=== PATIENT | male | born 1990 | race Caucasian/White ===

== ENCOUNTER 2020-08-12 19:34 | Emergency (ER) | payer MEDICAID ==
[~2020-08-12] VITALS: Ht 177.8 cm; Wt 63.6 kg
[~2020-08-12 19:34] MED LIST: ALPR1TAB2 PO; BENA10TA74 PO; BUPR1FIL3 SL
[2020-08-12 19:38] VITALS: BP 132/72
[2020-08-13] MEDS ORDERED: NO HOME MEDS (19:42)
== END 2020-08-12 22:10 | disposition left against medical advice (07) ==
LOC: ER 19:34
DX: L02.414 Cutaneous abscess of left upper limb (principal); Z53.21 Procedure and treatment not carried out due to patient leaving prior to being seen by health care provider

== ENCOUNTER 2020-08-13 11:13 | Emergency (ER) | payer MEDICAID ==
[~2020-08-13] VITALS: Ht 180.3 cm; Wt 77.3 kg
[2020-08-13 11:55] LABS: BASOPHILS # (AUTO) 0.1 X10'3 (0-0.2); BASOPHILS % (AUTO) 0.7 % (0-1); EOSINOPHILS % (AUTO) 0.4 % (0-6); HEMOGLOBIN 12.8 g/dl (14.0-17.9); LYMPHOCYTES % (AUTO) 19.3 % (21-51); MEAN CORPUSCULAR HEMOGLOBIN 29.7 PG (27.0-31.0); MEAN CORPUSCULAR HGB CONC 33.7 g/dL (33.0-36.5); MEAN CORPUSCULAR VOLUME 88.3 FL (78-98); MEAN PLATELET VOLUME 6.7 FL (7.4-10.4); MONOCYTES # (AUTO) 1.1 X10'3 (0-0.9); MONOCYTES % (AUTO) 10.6 % (2-12); NEUTROPHILS # (AUTO) 7.2 X10'3 (1.8-7.7); PLATELET COUNT 518 X10'3 (140-440); RED CELL DISTRIBUTION WIDTH 15.3 % (11.5-14.5); WHITE BLOOD COUNT 10.5 X10'3 (4.5-11.0)
[2020-08-13 12:14] LABS: ALANINE AMINOTRANSFERASE 47 U/L (12-78); ALBUMIN 2.9 G/DL (3.4-5.0); ALBUMIN/GLOBULIN RATIO 0.6 (1.1-1.5); ALKALINE PHOSPHATASE 104 IU/L (46-116); ANION GAP 7 (8-16); ASPARTATE AMINO TRANSFERASE 27 U/L (10-37); BILIRUBIN,TOTAL 0.2 MG/DL (0.1-1.0); BLOOD UREA NITROGEN 12 MG/DL (7-18); BUN/CREATININE RATIO 20.3 (5.4-32.0); CALCIUM 8.7 MG/DL (8.5-10.1); CHLORIDE 106 MMOL/L (99-107); CREATININE 0.59 MG/DL (0.60-1.10); GLUCOSE 107 MG/DL (70-104); POTASSIUM 3.4 MMOL/L (3.5-5.1); SODIUM 142 MMOL/L (135-145); TOTAL CARBON DIOXIDE 28.8 MMOL/L (24-32); eGFR > 90 ML/MIN
[2020-08-13 12:16] LABS: ETHANOL < 0.010 GM/DL (0.0-0.010)
[2020-08-13] MEDS ORDERED: risperiDONE 2mg tablet PO ONE (12:45)
[2020-08-13] MEDS ORDERED: LORazepam 1 MG tablet PO ONE (12:45)
--- NOTE | 2020-08-13 13:12 | NUR ---
PT LAYING ON HIS RIGHT SIDE RESTING.
[2020-08-13] MEDS ORDERED: diphenhydrAMINE 50 mg/ml inj IM ONE (14:00)
[2020-08-13] MEDS ORDERED: haloperidol lactate 5mg/ml inj IM ONE (14:00)
[2020-08-13] MEDS ORDERED: LORazepam 2 mg/ml vial IM ONE (14:00)
[2020-08-13 14:10] LABS: URINE AMPHETAMINE SCREEN POSITIVE (Neg); URINE BARBITUATE SCREEN NEGATIVE (Neg); URINE BENZODIAZEPINES SCREEN NEGATIVE (Neg); URINE CANNABINOID SCREEN NEGATIVE (Neg); URINE COCAINE SCREEN NEGATIVE (Neg); URINE METHADONE SCREEN NEGATIVE (Neg); URINE OPIATE SCREEN POSITIVE (Neg); URINE PHENCYCLIDINE SCREEN NEGATIVE (Neg)
[2020-08-13] MEDS ORDERED: sulfamethoxazole/trimethoprim DS (800/160mg) tablet PO ONE (14:40)
--- NOTE | 2020-08-13 15:41 | NUR ---
PT RESTING LAYIN ON HIS RIGHT SIDE. NO DISTRESS NOTED AT THIS TIME.
[2020-08-13 15:50] LABS: CLARITY,URINE CLOUDY (Clear); COLOR,URINE YELLOW (Yellow); GLUCOSE, URINE NEGATIVE (Neg); KETONES,URINE NEGATIVE (Neg); LEUKOCYTE ESTERASE ,URINE NEGATIVE (Neg); NITRITES, URINE NEGATIVE (Neg); OCCULT BLOOD,URINE TRACE-LYSED (Neg); PH,URINE 7.5 (4.8-8.0); PROTEIN,URINE NEGATIVE (Neg); UROBILINOGEN,URINE 0.2 E.U/dL (0.2-1.0)
[2020-08-13 15:56] LABS: UA COLLECTION TYPE URINAL
[2020-08-13 15:58] LABS: BACTERIA,URINE 1+ /HPF (Neg); SQUAMOUS EPITHELIAL CELL,UR FEW /LPF (FEW); WBC,URINE 0-4 /HPF (0-4)
[2020-08-13 15:59] LABS: AMORPHOUS PHOSPHATES 3+; CAL OXALATE CRYSTALS 1+ /HPF (NEGATIVE)
--- NOTE | 2020-08-13 18:04 | NUR ---
PT RESTING LAYING ON HIS RIGHT SIDE, RESPIRATIONS EVEN AND UNLABORED. NO DISTRESS NOTED AT THIS TIME.
--- NOTE | 2020-08-13 18:30 | NUR ---
The patient was moved to bed 23 in the ER. He was cooperative with the move. He appears very disheveled, thin, and unbathed. He was very hungry and ate 100% of two dinner trays.
[2020-08-13] MEDS ORDERED: NO HOME MEDS (19:42)
--- NOTE | 2020-08-13 19:43 | NUR ---
Attempted to interview the patient. He presents as very tired. He is mumbling his replies. He denies voices. He appears to be sleeping soundly when approached. He has sutures in his left foot by his big toe. He has a dressing to his left upper arm which was saturated with red purulent drainage the dressing was changed. Encouraged patient to drink extra fluids and to rest. Extra juice and blankets given and the patient's sleeping area was darkened.
--- NOTE | 2020-08-13 19:46 | NUR ---
Packet sent to [facility]
--- NOTE | 2020-08-13 22:20 | NUR ---
The patient is currently awake and drinking juices left at the bedside
--- NOTE | 2020-08-13 23:21 | NUR ---
The patient appears to be sleeping
--- NOTE | 2020-08-14 01:28 | NUR ---
The patient appears to be sleeping. Was talking in his sleep at one point
[2020-08-14] MEDS ORDERED: ibuprofen tablet 400 MG TABLET PO ONE (02:50)
--- NOTE | 2020-08-14 02:50 | NUR ---
The patient awake and had been incontinent of urine. The patient is agitated and verbally abusive to staff. Demanding oxycontin and refusing ibuprofen ordered. He is refusing to have a dressing reapplied to his wound. He was assisted with cleaning up and the bed linens were changed on his bed.
--- NOTE | 2020-08-14 03:00 | NUR ---
The patient is mumbling angerily to himself. Demanding and rude.
--- NOTE | 2020-08-14 04:40 | NUR ---
The patient appears to be back asleep
--- NOTE | 2020-08-14 07:00 | NUR ---
pt is sleeping, no needs at this time
[2020-08-14] MEDS ORDERED: risperiDONE 2mg tablet PO ONE (07:20)
[2020-08-14] MEDS ORDERED: LORazepam 1 MG tablet PO ONE (07:20)
[2020-08-14] MEDS: buprenorphine/naloxone 8MG-2MG SUBlingual film SL SCH (07:35)
[2020-08-14] MEDS: NICOTINE POLACRILEX 2 MG LOZENGE BC PRN (07:51)
[2020-08-14] MEDS ORDERED: nicotine 14mg patch - 24hr TD ONE (08:00)
--- NOTE | 2020-08-14 08:00 | NUR ---
pt is awake and demanding medications, was told we will get order for meds
--- NOTE | 2020-08-14 09:00 | NUR ---
pt is awake, slightly amped up still, no needs at this time
--- NOTE | 2020-08-14 10:01 | NUR ---
pt is supine in bed, sleeping, no needs at this time
--- NOTE | 2020-08-14 11:05 | NUR ---
pt is supine in bed, sleeping, no no needs at this time
--- NOTE | 2020-08-14 11:32 | NUR ---
RECEIVED REPORT FROM RONNI VAUGHN. PATIENT LYING IN BED ON HIS RIGHT SIDE. PATIENT ORIENTED TO SELF AND . REORIENTED, STATED "[facility]" FOR LOCATION. LUNGS CL, DENIES SOB, RR EVEN AND UNLABORED, BILATERAL PEDAL PULSES PALPATED PATIETN DOES NOT MAKE EYE CONTACT AND TALKS PRESSURED AND RAPIDLY AND IS OFTEN DIFFICULT TO UNDERSTAND. ASKED PATIENT TO REMOVE HIS SHIRT SO I CAOULD LOOK AT HIS WOUNDS. PATIENT REFUSED. HE ALSO REFUSED TO ALLOW PICTURES OF WOUNDS TO BE TAKEN. PER REPORT, PATIENT HAD NECK AND FOOT WOUNDS TAKEN CARE OF AT [facility]: LEFT FOOT MEDIALLY HAD SUTURES ABOUT 4 WITH WELL APPROXIMATED AND SCABBED OVER LINEAR WOUND. TOE REDDENED AND HOT AND HEAT TRAVELS UP LEG, RIGHT NECK WITH 2 SMALL ABOUT 1 CM EACH THAT APPEAR GLUED ON HIS RIGHT NECK: WELL APPROXIMATED NECK HARD TO THE TOUCH. LEFT UPPER OUTER ARM: HOLE WITH REDDENED SUJROUNDING SKIN WITH SEROUS FLUID ON LARGE BANDAID: NEW BANDAID PLACED: ABCESS DRAINED HERE YESTERDAY
--- NOTE | 2020-08-14 11:34 | NUR ---
TECH ASKE D TO DO VITAL SIGNS
--- NOTE | 2020-08-14 11:49 | NUR ---
CALLING EZE MCDONALD BACK AT [facility] [phone] NURSES STATION
--- NOTE | 2020-08-14 11:50 | NUR ---
FAXED NEGATIVE UA AND NEGATIVE COVID SWAB RESULTS TO [facility]
--- NOTE | 2020-08-14 12:10 | NUR ---
LAZARUS DIEZ MOTHER [phone] AT BEDSIDE
--- NOTE | 2020-08-14 12:35 | NUR ---
CALLED [facility]. ALSO, [facility] MD WANTS TO KNOW WHO WOULD BE FOLLOWING THE PATIENT'S SUBOXONE TREATMENT IN [facility]: DR SR. PATIENT REPORTS LAST USE OF METH AND HEROIN "A FEW DAYS AGO" BUT PATIENT'S FRIEND CALLED FOR HELP YESTERDAY DUE TO PATIENT "INJECTING HIMSELF ALL OVER" AND ATTEMPTING TO INJECT MILK. SPOKE TO TAMARA LOO AT [facility] REGARDING POTENTIALLY DISCONTNIUING THE SUBOXONE AND TREATING POTENTIAL WITHDRAWAL SYMPTOMS NEEDED.
[2020-08-14] MEDS ORDERED: sulfamethoxazole/trimethoprim DS (800/160mg) tablet PO ONE (12:55)
--- NOTE | 2020-08-14 13:01 | NUR ---
DISCUSSED PATIENT'S WOUNDS WITH DR HIGGINS AND POTENTIAL ANTIBIOTICS BACTRIM 2 TABS WERE GIVEN YESTERDAY AT 1441, ORDERS RECEIVED
--- NOTE | 2020-08-14 13:20 | NUR ---
PATIENT SITTING UP EATING LUNCH PRIOR TO EATING LUNCH, DR HIGGINS REMOVED SUTURES FROM MEDIAL LEFT BIG TOE. 4 SUTURES REMOVED: WOUND CDI AND SCABBED OVER, NOT BLEEDING
--- NOTE | 2020-08-14 15:00 | NUR ---
PATIENT SLEEPING ON RIGHT SIDE RR EVEN AND UNLABORED
--- NOTE | 2020-08-14 16:00 | NUR ---
PATIENT AMBULATED TO BATHROOM WNL, WASHED FEET IN BATHROOM, REFUSED TO DO ORAL CARE
--- NOTE | 2020-08-14 17:51 | NUR ---
MOTHER AT BEDSIDE AND PATIENT IS NOW YELLING AND HITTING HIMSELF IN THE HEAD. MOTHER LEFT AND PATIENT IS CALMER, NON STOP REPETITVE SPEECH, BUT NOT YELLING PATIENT STATED THAT HIS MOTHER BOUGHT HIM NEW CLOTHES AND PAYING FOR A HOTEL ROOM FOR HIM, THEN STARTED YELLING AT ME BECAUSE "YOU BROUGHT ME HERE, AND NOW IM GHOING TO BE HERE FOREVEER" I REORIENTED PATIENT AND CLARIFIED HOW HE ARRIVED IN THE ER . PATIENT HAS BEEN INTER MITTENTLY RAPIDLY TALKING TO HIMSELF THROUT THE SHIFT WELL DANCING IN HIS ROOM
--- NOTE | 2020-08-14 18:11 | NUR ---
Mom called after she left her visit due to Alan getting very irritated by her presence. She acknowledged that she makes things "worse" so she will not be visiting for a few days but will call and check in on him.
--- NOTE | 2020-08-14 19:00 | NUR ---
Received pt awake in bed mumbling to self. Pt ate dinner.
--- NOTE | 2020-08-14 21:00 | NUR ---
Pt remains asleep in bed without signs of distress.
--- NOTE | 2020-08-14 23:00 | NUR ---
Pt remains asleep without signs of distress.
--- NOTE | 2020-08-15 01:00 | NUR ---
Pt sleeping calmly without signs of distress.
[2020-08-15] MEDS: sulfamethoxazole/trimethoprim DS (800/160mg) tablet PO SCH ×3 (02:36→20:00)
--- NOTE | 2020-08-15 02:39 | NUR ---
Pt awoke and finally agreed to take antibiotic. Pt talking and cursing to self. Making lude, nonsensicle comments.
[2020-08-15] MEDS ORDERED: OLANZapine 5mg rapidly disint. tablet PO ONE (02:50)
[2020-08-15] MEDS ORDERED: LORazepam 1 MG tablet PO ONE (02:50)
--- NOTE | 2020-08-15 02:52 | NUR ---
Pt response to internal stimuli increasingly agitated and pt began hitting himself in the head. MD notified and ordered ativan 1mg and zydis 5mg both of which were given. Pt also requested a snack and he was given a sandwich. Pt polite to staff.
--- NOTE | 2020-08-15 03:30 | NUR ---
Pt continued to respond to internal stimuli and through himself on the ground at one point and was yelling saying the voices through him down. About 35 minutes after ativan and zydis given, pt was resting in bed and was asleep 45 minutes after taking the medications.
--- NOTE | 2020-08-15 05:00 | NUR ---
Pt asleep in bed without signs of distress.
--- NOTE | 2020-08-15 06:30 | NUR ---
Pt sleeping on left side. Respirations unlabored. NAD
--- NOTE | 2020-08-15 07:30 | NUR ---
Pt sleeping. Respirations unlabored. NAD
[2020-08-15] MEDS ORDERED: nicotine 14mg patch - 24hr TD ONE (08:00)
--- NOTE | 2020-08-15 08:30 | NUR ---
Pt walked to restroom. Pt ate all of his breakfast. Changed pt's bedding as it was dirty. Pt denies any further needs at this time.
[2020-08-15] MEDS: buprenorphine/naloxone 8MG-2MG SUBlingual film SL SCH (08:31)
--- NOTE | 2020-08-15 09:30 | NUR ---
Pt sleeping on back. Respirations unlabored. NAD
--- NOTE | 2020-08-15 10:29 | NUR ---
Pt's mother, Brittni, called for an update on the pt. Let her know he was sleeping. She said she won't come in because when she does, the pt starts asking her to bring him things that she knows he can't have and that makes him upset.
--- NOTE | 2020-08-15 10:31 | NUR ---
Pt sleeping respirations unlabored. NAD
--- NOTE | 2020-08-15 11:29 | NUR ---
Pt sleeping on back. Respirations unlabored. NAD
--- NOTE | 2020-08-15 11:46 | NUR ---
Cris called from the [facility] office. [facility] is reviewing the pt's chart for possible placement at their facility. They did not receive the UA results from the pt. UA results faxed to [facility].
--- NOTE | 2020-08-15 12:51 | NUR ---
Pt up to the restroom. Pt denies any further needs at this time.
--- NOTE | 2020-08-15 13:29 | NUR ---
Pt is talking with voices in his head. Pt unable to recognize they are not real. Pt is swearing at the voices. Told pt to watch his language. Pt continues to talk to the voices.
--- NOTE | 2020-08-15 14:35 | NUR ---
Pt resting in bed. Pt is awake and denies any needs at this time.
--- NOTE | 2020-08-15 14:47 | NUR ---
Pt pulled his nicotine patch off. Reapplied patch and taped it to his left shoulder.
--- NOTE | 2020-08-15 14:55 | NUR ---
Pt took his nicotine patch off and threw it in the trash, refusing to wear it.
[2020-08-15] MEDS: OLANZapine 5mg rapidly disint. tablet PO SCH ×2 (14:59→20:00)
[2020-08-15] MEDS: LORazepam 1 MG tablet PO SCH (14:59)
--- NOTE | 2020-08-15 15:26 | NUR ---
Pt given some snacks.
--- NOTE | 2020-08-15 15:56 | NUR ---
Pt's meds in effect and pt sleeping on right side in his bed. Respirations unlabored. NAD
--- NOTE | 2020-08-15 16:46 | NUR ---
Pt sleeping in bed. Respirations unlabored. NAD
--- NOTE | 2020-08-15 17:39 | NUR ---
Pt sleeping on his back. Respirations unlabored. NAD
[2020-08-15 17:44] VITALS: BP 115/76
--- NOTE | 2020-08-15 17:48 | NUR ---
Pt's mother, Brittni, called for another update on how he was doing.
--- NOTE | 2020-08-15 19:44 | NUR ---
pt is sleeping. pt refused his pm medications.
[2020-08-15] MEDS: lactobacillus rhamnosus 10,000 MMU CELLS/CAPSULE PO SCH (20:00)
--- NOTE | 2020-08-15 22:38 | NUR ---
pt continues to sleep, no s/s of distress noted.
--- NOTE | 2020-08-16 00:35 | NUR ---
pt is sleeping, rr unlabored, will continue to monitor
[2020-08-16] MEDS: NICOTINE POLACRILEX 2 MG LOZENGE BC PRN (05:23)
[2020-08-16] MEDS: LORazepam 1 MG tablet PO SCH ×2 (05:23→08:00)
--- NOTE | 2020-08-16 05:30 | NUR ---
Patient was becoming restless and agitated. Gave Ativan; patient refused Zyprexa. Patient doing hygiene with wash cloth at bedside. Nicotine lozenge given.
--- NOTE | 2020-08-16 06:58 | NUR ---
Patient is wandering around room. Cooperative and calm. He states that he refuses Zyprexa and Suboxone because they don't like the way they make him feel.
--- NOTE | 2020-08-16 07:53 | NUR ---
no signs/symptoms of distress. patient awake and wandering around room.
[2020-08-16] MEDS: buprenorphine/naloxone 8MG-2MG SUBlingual film SL SCH (08:00)
[2020-08-16] MEDS: OLANZapine 5mg rapidly disint. tablet PO SCH (08:00)
[2020-08-16] MEDS: lactobacillus rhamnosus 10,000 MMU CELLS/CAPSULE PO SCH (08:00)
[2020-08-16] MEDS: sulfamethoxazole/trimethoprim DS (800/160mg) tablet PO SCH (08:23)
--- NOTE | 2020-08-16 08:43 | NUR ---
PT ATTEMPTED TO LEAVE THE ER PT ASSISTED BACK TO BED. SITTER AT BS. DR STYLES NOTIFED. NO ORDERS AT THIS TIME
--- NOTE | 2020-08-16 10:30 | NUR ---
Mental Health at bedside to tell patient he will not be discharged today. Security at bedside. Patient became agitated after conversation and eloped. Unable to be re-directed by staff or security. Eva called.
--- NOTE | 2020-08-16 10:32 | NUR ---
Last seen [facility].
--- NOTE | 2020-08-16 10:32 | NUR ---
GRACIELA PUCKETT CALLED AND REPORTED THAT PT IS WEARING GREEN SCRUBS, HEIGHT AND WEIGHT AND LAST SEEN [facility] [address]
== END 2020-08-16 10:34 ==
LOC: ER 11:13
DX: F23 Brief psychotic disorder (principal); Z20.822 Contact with and (suspected) exposure to COVID-19; L02.414 Cutaneous abscess of left upper limb; F41.9 Anxiety disorder, unspecified; F32.9 Major depressive disorder, single episode, unspecified; F12.90 Cannabis use, unspecified, uncomplicated; F15.90 Other stimulant use, unspecified, uncomplicated; Z98.890 Other specified postprocedural states; Z72.89 Other problems related to lifestyle; Z88.0 Allergy status to penicillin; Z79.899 Other long term (current) drug therapy
CPT/HCPCS: 10060; 36415; 80053; 80305; 80320; 81001; 84443; 85025; 87426; 96372; 99285; J1630

== ENCOUNTER 2020-08-22 09:13 | Emergency (ER) | payer MEDICAID ==
[~2020-08-22] VITALS: Ht 177.8 cm; Wt 63.0 kg
[~2020-08-22 09:13] MED LIST changes: -ALPR1TAB2 PO; -BENA10TA74 PO; -BUPR1FIL3 SL; +NO HOME MEDS
[2020-08-22 10:19] VITALS: BP 119/87
[2020-08-22 10:27] LABS: BASOPHILS % (AUTO) 0.6 % (0-1); EOSINOPHILS # (AUTO) 0.1 X10'3 (0-0.9); EOSINOPHILS % (AUTO) 1.4 % (0-6); HEMATOCRIT 36.3 % (42.0-52.0); HEMOGLOBIN 12.3 g/dl (14.0-17.9); LYMPHOCYTES # (AUTO) 1.4 X10'3 (1.1-4.8); LYMPHOCYTES % (AUTO) 18.7 % (21-51); MEAN CORPUSCULAR HEMOGLOBIN 30.5 PG (27.0-31.0); MEAN CORPUSCULAR VOLUME 89.6 FL (78-98); MEAN PLATELET VOLUME 7.2 FL (7.4-10.4); MONOCYTES # (AUTO) 0.9 X10'3 (0-0.9); MONOCYTES % (AUTO) 12.1 % (2-12); NEUTROPHILS # (AUTO) 5.2 X10'3 (1.8-7.7); NEUTROPHILS % (AUTO) 67.2 % (42-75); PLATELET COUNT 342 X10'3 (140-440); RED BLOOD COUNT 4.05 X10'6 (4.70-6.10); RED CELL DISTRIBUTION WIDTH 16.6 % (11.5-14.5); WHITE BLOOD COUNT 7.7 X10'3 (4.5-11.0)
[2020-08-22 10:30] LABS: ALANINE AMINOTRANSFERASE 41 U/L (12-78); ALBUMIN 2.8 G/DL (3.4-5.0); ALBUMIN/GLOBULIN RATIO 0.6 (1.1-1.5); ALKALINE PHOSPHATASE 86 IU/L (46-116); ANION GAP 8 (8-16); ASPARTATE AMINO TRANSFERASE 33 U/L (10-37); BILIRUBIN,TOTAL 0.4 MG/DL (0.1-1.0); BLOOD UREA NITROGEN 19 MG/DL (7-18); BUN/CREATININE RATIO 33.3 (5.4-32.0); CALCIUM 8.2 MG/DL (8.5-10.1); CHLORIDE 105 MMOL/L (99-107); CREATININE 0.57 MG/DL (0.60-1.10); GLUCOSE 101 MG/DL (70-104); POTASSIUM 3.6 MMOL/L (3.5-5.1); SODIUM 143 MMOL/L (135-145); TOTAL CARBON DIOXIDE 30.2 MMOL/L (24-32); TOTAL PROTEIN 7.2 G/DL (6.4-8.2); eGFR > 90 ML/MIN
[2020-08-22 10:33] LABS: ETHANOL < 0.010 GM/DL (0.0-0.010)
[2020-08-22 10:35] LABS: ACETAMINOPHEN < 2.0 UG/ML (10-30)
[2020-08-22 10:51] LABS: URINE AMPHETAMINE SCREEN POSITIVE (Neg); URINE BARBITUATE SCREEN NEGATIVE (Neg); URINE BENZODIAZEPINES SCREEN NEGATIVE (Neg); URINE CANNABINOID SCREEN NEGATIVE (Neg); URINE COCAINE SCREEN NEGATIVE (Neg); URINE METHADONE SCREEN NEGATIVE (Neg); URINE OPIATE SCREEN POSITIVE (Neg); URINE PHENCYCLIDINE SCREEN NEGATIVE (Neg)
--- NOTE | 2020-08-22 11:45 | NUR ---
pt asleep at this time.
--- NOTE | 2020-08-22 12:41 | NUR ---
PACKET FAXED TO [facility]
--- NOTE | 2020-08-22 12:47 | NUR ---
Report given to Christal RUDOLPH on behalf of primary RN Charles. Pt escorted from ED15 to ED20 with staff and security.
--- NOTE | 2020-08-22 13:16 | NUR ---
PT STATES, I HAVE ADHD BUT I WONT TAKE MY MEDS UNTIL I GET MY PAIN MED PERCOCET. PT WILL NOT TELL ME WHAT HIS MEDS ARE.
[2020-08-22] MEDS ORDERED: diphenhydrAMINE 50 mg/ml inj IM ONE (13:35)
[2020-08-22] MEDS ORDERED: LORazepam 2 mg/ml vial IM ONE (13:35)
[2020-08-22] MEDS ORDERED: haloperidol lactate 5mg/ml inj IM ONE (13:35)
--- NOTE | 2020-08-22 13:35 | NUR ---
PT AGITATED, YELLING OBSCENITIES. SPITTING ON CURTAINS. SECURITY CALLED AND STACY, INFORMED. PLEASE SEE NEW ORDERS.
--- NOTE | 2020-08-22 14:47 | NUR ---
PT SLEEPING QUIETLY. NO ACUTE DISTRESS NOTED.
--- NOTE | 2020-08-22 16:30 | NUR ---
LAZARUS MOM [phone] PT HIT HIMSELF IN HEAD WITH METAL BOTTLE, PUT A DENT IN THE BOTTLE. ALSO HAS AN INFECTED TOE THAT NEEDS TO BE LOOKED.
--- NOTE | 2020-08-22 16:35 | NUR ---
PT AMB TO BR WITH ASST. LITTLE WOBBLY ON HIS FEET. VOIDED LARGE AMT OF CLEAR YELLOW URINE.
--- NOTE | 2020-08-22 16:52 | NUR ---
MOM CALLED AND MENTION THAT HE WAS IN A [facility] AND GOT KICKED OUT.
--- NOTE | 2020-08-22 20:30 | NUR ---
PT SLEEPING IN BED AT THIS TIME, MISSED HIS EVENING MEAL.
--- NOTE | 2020-08-22 21:20 | NUR ---
PT RESTING IN BED COMFORTABLE SLEEPING AT THIS TIME. DISCHARGE PAPERWORK BEING PREPARED TO TRANSFER PATIENT UPSTAIRS.
--- NOTE | 2020-08-22 21:55 | NUR ---
PT CONTINUES TO SLEEP AT THIS TIME COMFORTABLY IN BED IN NO SIGN OF DISTRESS.
== END 2020-08-22 22:37 ==
LOC: ER 09:13
DX: F29 Unspecified psychosis not due to a substance or known physiological condition (principal); R07.81 Pleurodynia; F41.9 Anxiety disorder, unspecified; F32.9 Major depressive disorder, single episode, unspecified; F20.9 Schizophrenia, unspecified; F12.90 Cannabis use, unspecified, uncomplicated; F15.90 Other stimulant use, unspecified, uncomplicated; F11.90 Opioid use, unspecified, uncomplicated; Z98.890 Other specified postprocedural states; Z72.89 Other problems related to lifestyle; Z88.0 Allergy status to penicillin
CPT/HCPCS: 36415; 71101; 80053; 80305; 80320; 80329; 85025; 96372; 99285; J1200; J1630; J2060

== ENCOUNTER 2020-09-02 08:48 | Emergency (ER) | payer MEDICAID ==
[~2020-09-02] VITALS: Ht 177.8 cm; Wt 68.2 kg
[2020-09-02] MEDS ORDERED: diphenhydrAMINE 50 mg/ml inj IM ONE (08:55)
[2020-09-02] MEDS ORDERED: haloperidol lactate 5mg/ml inj IM PRN (08:55)
--- NOTE | 2020-09-02 09:22 | NUR ---
Pt remaining combative despite redirecting and less restrictive measures to calm pt. Threatening to fight staff, stating he will "kick our ass" if we approach him. IM medications given.
--- NOTE | 2020-09-02 09:43 | NUR ---
BEHAVIORAL RESTRAINTS REMOVED.
[2020-09-02 10:23] LABS: BASOPHILS % (AUTO) 0.6 % (0-1); EOSINOPHILS # (AUTO) 0.1 X10'3 (0-0.9); EOSINOPHILS % (AUTO) 1.6 % (0-6); HEMATOCRIT 44.8 % (42.0-52.0); HEMOGLOBIN 15.1 g/dl (14.0-17.9); LYMPHOCYTES # (AUTO) 1.7 X10'3 (1.1-4.8); LYMPHOCYTES % (AUTO) 23.2 % (21-51); MEAN CORPUSCULAR HEMOGLOBIN 29.9 PG (27.0-31.0); MEAN CORPUSCULAR HGB CONC 33.7 g/dL (33.0-36.5); MEAN CORPUSCULAR VOLUME 88.9 FL (78-98); MEAN PLATELET VOLUME 7.2 FL (7.4-10.4); MONOCYTES # (AUTO) 1.1 X10'3 (0-0.9); MONOCYTES % (AUTO) 14.3 % (2-12); NEUTROPHILS # (AUTO) 4.5 X10'3 (1.8-7.7); NEUTROPHILS % (AUTO) 60.3 % (42-75); PLATELET COUNT 280 X10'3 (140-440); RED BLOOD COUNT 5.04 X10'6 (4.70-6.10); RED CELL DISTRIBUTION WIDTH 15.8 % (11.5-14.5); WHITE BLOOD COUNT 7.5 X10'3 (4.5-11.0)
[2020-09-02 10:35] LABS: ALANINE AMINOTRANSFERASE 230 U/L (12-78); ALBUMIN 3.1 G/DL (3.4-5.0); ALBUMIN/GLOBULIN RATIO 0.7 (1.1-1.5); ALKALINE PHOSPHATASE 105 IU/L (46-116); ANION GAP 9 (8-16); ASPARTATE AMINO TRANSFERASE 157 U/L (10-37); BILIRUBIN,TOTAL 0.5 MG/DL (0.1-1.0); BLOOD UREA NITROGEN 11 MG/DL (7-18); BUN/CREATININE RATIO 15.9 (5.4-32.0); CALCIUM 8.5 MG/DL (8.5-10.1); CHLORIDE 106 MMOL/L (99-107); CREATININE 0.69 MG/DL (0.60-1.10); ETHANOL < 0.010 GM/DL (0.0-0.010); GLUCOSE 90 MG/DL (70-104); POTASSIUM 3.6 MMOL/L (3.5-5.1); SODIUM 142 MMOL/L (135-145); TOTAL CARBON DIOXIDE 27.2 MMOL/L (24-32); TOTAL PROTEIN 7.3 G/DL (6.4-8.2); eGFR > 90 ML/MIN
--- NOTE | 2020-09-02 14:42 | NUR ---
PT SLEEPING, NO DISTRESS
[2020-09-02 16:56] LABS: URINE AMPHETAMINE SCREEN POSITIVE (Neg); URINE BARBITUATE SCREEN NEGATIVE (Neg); URINE BENZODIAZEPINES SCREEN NEGATIVE (Neg); URINE CANNABINOID SCREEN NEGATIVE (Neg); URINE COCAINE SCREEN NEGATIVE (Neg); URINE METHADONE SCREEN NEGATIVE (Neg); URINE OPIATE SCREEN POSITIVE (Neg); URINE PHENCYCLIDINE SCREEN NEGATIVE (Neg)
--- NOTE | 2020-09-02 17:13 | NUR ---
Patient brought over from main. Patient was not fed lunch and has been here since before 0900. RN found sandwich and juice for patient. Patient is calm and cooperative. Continue to monitor.
[2020-09-02 17:15] LABS: CLARITY,URINE CLEAR (Clear); COLOR,URINE YELLOW (Yellow); GLUCOSE, URINE NEGATIVE (Neg); KETONES,URINE NEGATIVE (Neg); LEUKOCYTE ESTERASE ,URINE NEGATIVE (Neg); NITRITES, URINE NEGATIVE (Neg); OCCULT BLOOD,URINE NEGATIVE (Neg); PROTEIN,URINE NEGATIVE (Neg); UROBILINOGEN,URINE 0.2 E.U/dL (0.2-1.0)
[2020-09-02 17:18] LABS: UA COLLECTION TYPE CLN CATCH MIDSTREAM
--- NOTE | 2020-09-02 18:01 | NUR ---
PACKET FAXED TO [facility]
--- NOTE | 2020-09-03 12:36 | NUR ---
Sonia from [facility] called for nurse to nurse report. Would like copy of covid test and add TSH to labs.
[2020-09-03] MEDS ORDERED: LORazepam 1 MG tablet PO ONE (12:55)
[2020-09-03] MEDS ORDERED: chlordiazePOXIDE 25mg capsule PO ONE (12:55)
--- NOTE | 2020-09-03 19:00 | NUR ---
Pt resting quietly, respirations normal, no s/s of distress.
--- NOTE | 2020-09-03 20:00 | NUR ---
Pt resting quietly, respirations normal, no s/s of distress.
--- NOTE | 2020-09-03 21:00 | NUR ---
Pt resting quietly, respirations normal, no s/s of distress.
--- NOTE | 2020-09-03 22:00 | NUR ---
Pt resting quietly, respirations normal, no s/s of distress.
--- NOTE | 2020-09-03 22:53 | NUR ---
Pt up to restroom.
--- NOTE | 2020-09-04 | NUR ---
Pt resting quietly, respirations normal, no s/s of distress.
--- NOTE | 2020-09-04 01:00 | NUR ---
Pt resting quietly, respirations normal, no s/s of distress.
--- NOTE | 2020-09-04 02:00 | NUR ---
Pt resting quietly, respirations normal, no s/s of distress.
--- NOTE | 2020-09-04 03:18 | NUR ---
Pt woke up yelling requesting a snack and proceeded to throw his cup on the ground. Pt redirected.
--- NOTE | 2020-09-04 04:00 | NUR ---
Pt resting quietly, respirations normal, no s/s of distress.
--- NOTE | 2020-09-04 05:01 | NUR ---
Pt up to the restroom.
--- NOTE | 2020-09-04 06:48 | NUR ---
pt is supine in bed, eyes closed, regular breathing present, is asleep, no needs at this time
--- NOTE | 2020-09-04 07:42 | NUR ---
Spoke with Dr. Hinojosa regarding patient increasing in anxiety and agitation. Patient also requesting ativan and librium as he was given these medications [address] Hinojosa gave verbal order for librium 50 mg BID PRN Q8H to start now and Zyprexa 10 mg BID to start now as well. Placed orders. Linda RUDOLPH aware of new orders.
[2020-09-04] MEDS ORDERED: chlordiazePOXIDE 25mg capsule PO PRN (07:45)
--- NOTE | 2020-09-04 07:45 | NUR ---
pt mom called, is wanting to come in and see pt or talk to him on the phone, hx of setting him off,
[2020-09-04] MEDS: OLANZapine 2.5MG tablet PO SCH ×3 (07:54→19:23)
--- NOTE | 2020-09-04 08:01 | NUR ---
pt supine in bed, refused meds at first, then took them. He is calm at this time, requesting breakfast
--- NOTE | 2020-09-04 09:00 | NUR ---
pt is supine in bed, eyes closed, regular breathing observed, no needs at this time
--- NOTE | 2020-09-04 09:32 | NUR ---
Mom called to talk to pt, he is asleep
--- NOTE | 2020-09-04 10:00 | NUR ---
Najma from [facility] called for 2nd nurse to nurse, she says he will be presented and they will call back
--- NOTE | 2020-09-04 10:07 | NUR ---
pt is supine in bed, no needs at this time
--- NOTE | 2020-09-04 11:00 | NUR ---
pt supine in bed, no needs at this time
--- NOTE | 2020-09-04 11:55 | NUR ---
gave pt a sandwich and juice, he did have open sore on arm as he was picking at them. I placed bandaid on one that was bleeding more then the others.
--- NOTE | 2020-09-04 12:17 | NUR ---
pt tried to elope, was stopped by tech, security present, now laying on his right side, calm
--- NOTE | 2020-09-04 13:03 | NUR ---
pt is laying on her right side, eyes closed, no needs at this time
--- NOTE | 2020-09-04 14:26 | NUR ---
pt is awake, spoke to his mom and flung his water across the room, security called
--- NOTE | 2020-09-04 15:00 | NUR ---
pt is up and amplified, he is asked calm and lay down
--- NOTE | 2020-09-04 15:58 | NUR ---
pt is sleeping no needs at this time
--- NOTE | 2020-09-04 16:44 | NUR ---
PT SLEEPING ON RIGHT SIDE.
--- NOTE | 2020-09-04 17:13 | NUR ---
UP TO BATHROOM
--- NOTE | 2020-09-04 17:24 | NUR ---
RELIEVED PRIMARY NURSE FOR A BREAK, THE PATIENT WAS LAYING ON HIS BACK AWAKE AND ALERT. FIRST WAS TALKING ON THE PHONE TO HIS MOTHER, AND THEN LAYING QUIETLY. THE PATIENT'S RESPIRATIONS APPEARED NORMAL AND HE WAS NOT IN ANY DISTRESS AT THIS TIME.
--- NOTE | 2020-09-04 17:33 | NUR ---
pts mother just showed up, she is sitting at bedside talking
--- NOTE | 2020-09-04 17:40 | NUR ---
PT UPSET AND ARGUING WITH MOTHER AT BEDSIDE, MOTHER IS NOW LEAVING. DO NOT ALLOW PT TO CALL MOTHER.
[2020-09-04] MEDS ORDERED: hydrOXYzine 25 MG tablet PO PRN (18:40)
--- NOTE | 2020-09-04 18:58 | NUR ---
One to one with the patient to assess for severity of psychiatric symptoms. The patient threw a water pitcher after getting angry with his mom and when asked about it he stated, "it was an accident" He reports he is craving opiates and caffiene. He stated he doesn't believe he has a mental illness and then added, "They tell me I'm addicted to opiates" When asked what are his plans for when he leaves the hospital he replied to stay with a friend. 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 He is disheveled. He his focused on getting a rx for suboxone. Spoke with Jose LINO and discussed medications and orders received.
--- NOTE | 2020-09-04 19:38 | NUR ---
The patient refused evening dose of zyprexa stating, "if it is not a benzo I don't want it"
--- NOTE | 2020-09-04 20:19 | NUR ---
The patient appears to be sleeping
--- NOTE | 2020-09-04 20:59 | NUR ---
The patient appears to be sleeping
--- NOTE | 2020-09-05 00:17 | NUR ---
The patient appears to be sleeping
--- NOTE | 2020-09-05 01:05 | NUR ---
The patient appears to be sleeping
--- NOTE | 2020-09-05 02:49 | NUR ---
The patient appears to be sleeping
--- NOTE | 2020-09-05 04:37 | NUR ---
The patient is awake and requested/received a snack
[2020-09-05 05:28] VITALS: BP 133/100
[2020-09-05] MEDS: OLANZapine 2.5MG tablet PO SCH (07:12)
--- NOTE | 2020-09-05 09:00 | NUR ---
Pt had fallen asleep after breakfast and now is being evaluated by [facility]. Pt is being cooperative.
[2020-09-05] MEDS ORDERED: OLAN2.5T3 PO (09:52)
== END 2020-09-05 10:45 | disposition home or self-care (01) ==
LOC: ER 08:49
DX: F29 Unspecified psychosis not due to a substance or known physiological condition (principal); Z20.822 Contact with and (suspected) exposure to COVID-19; R45.1 Restlessness and agitation; F41.9 Anxiety disorder, unspecified; F32.9 Major depressive disorder, single episode, unspecified; F20.9 Schizophrenia, unspecified; F17.210 Nicotine dependence, cigarettes, uncomplicated; F12.90 Cannabis use, unspecified, uncomplicated; F15.90 Other stimulant use, unspecified, uncomplicated; F11.90 Opioid use, unspecified, uncomplicated; Z98.890 Other specified postprocedural states; Z72.89 Other problems related to lifestyle; Z88.0 Allergy status to penicillin
CPT/HCPCS: 36415; 80053; 80305; 80320; 81003; 84443; 85025; 87635; 96372; 99285; C9803; J1200; J1630

== ENCOUNTER 2021-06-17 10:21 | Emergency (ER) | payer MEDICAID ==
[~2021-06-17] VITALS: Ht 172.7 cm; Wt 63.6 kg
[~2021-06-17 10:21] MED LIST changes: +OLAN2.5T3 PO
[2021-06-17 10:22] VITALS: BP 124/91
[2021-06-17] MEDS ORDERED: ondansetron 4mg rapidly disintigrating tab PO ONE (10:25)
[2021-06-17] MEDS ORDERED: TETanus/Pertussis (Acell)/Diphther VAC/PF (Tdap-Adult) 0.5ml syringe IMVAC ONE (10:25)
[2021-06-17] MEDS ORDERED: bacitracin 15gm ointment TP ONE (10:25)
[2021-06-17] MEDS ORDERED: LIDOcaine/epinephrine/tetracaine TOPICAL sol 3 ML syringe TOP ONE (10:25)
[2021-06-17] MEDS ORDERED: clindamycin 150mg capsule PO ONE (10:25)
[2021-06-17] MEDS ORDERED: LORazepam 2 mg/ml vial IM ONE (10:30)
[2021-06-17] MEDS ORDERED: CLIN300C63 PO (11:39)
== END 2021-06-17 11:58 ==
LOC: ER 10:22
DX: Z00.8 Encounter for other general examination (principal); S50.811A Abrasion of right forearm, initial encounter; F41.9 Anxiety disorder, unspecified; F32.A Depression, unspecified; F20.9 Schizophrenia, unspecified; F12.90 Cannabis use, unspecified, uncomplicated; F15.90 Other stimulant use, unspecified, uncomplicated; F11.90 Opioid use, unspecified, uncomplicated; Z98.890 Other specified postprocedural states; Z88.0 Allergy status to penicillin; Z20.3 Contact with and (suspected) exposure to rabies; Z79.899 Other long term (current) drug therapy; W54.0XXA Bitten by dog, initial encounter; Y93.89 Activity, other specified; Y92.89 Other specified places as the place of occurrence of the external cause; Y99.8 Other external cause status
CPT/HCPCS: 73090; 90471; 90715; 96372; 99284; J2060

== ENCOUNTER 2023-09-18 16:57 | Outpatient (CLI) | payer OTHER | END 2023-09-18 23:59 | disposition home or self-care (01) | LOC: RAD 16:57 | PROVIDERS: ATTEND Family Medicine | DX: M25.562 Pain in left knee (principal) | CPT/HCPCS: 73564 ==

== ENCOUNTER 2024-09-25 14:44 | Inpatient (IN) | payer MEDICAID ==
[~2024-09-25] VITALS: Ht 172.7 cm; Wt 63.6 kg
--- NOTE | 2024-09-25 16:04 | RADIOLOGY REPORT ---
CLINICAL INDICATION: R hand swollen TECHNIQUE: 3-view right hand DI HAND, COMPLETE (3VW MIN) FINDINGS/IMPRESSION: : There is no evidence of acute fracture or dislocation. Soft tissues are unremarkable.
[2024-09-25 16:37] LABS: BASOPHILS % (AUTO) 0.3 % (0-1); EOSINOPHILS # (AUTO) 0.1 X10'3 (0-0.9); EOSINOPHILS % (AUTO) 0.6 % (0-6); HEMATOCRIT 27.4 % (42.0-52.0); HEMOGLOBIN 8.9 g/dl (14.0-17.9); LYMPHOCYTES # (AUTO) 1.2 X10'3 (1.1-4.8); LYMPHOCYTES % (AUTO) 9.5 % (21-51); MEAN CORPUSCULAR HEMOGLOBIN 21.8 PG (27.0-31.0); MEAN CORPUSCULAR HGB CONC 32.5 g/dL (33.0-36.5); MEAN CORPUSCULAR VOLUME 67.1 FL (78-98); MEAN PLATELET VOLUME 6.5 FL (7.4-10.4); MONOCYTES % (AUTO) 8.3 % (2-12); NEUTROPHILS # (AUTO) 10.1 X10'3 (1.8-7.7); NEUTROPHILS % (AUTO) 81.3 % (42-75); PLATELET COUNT 541 X10'3 (140-440); RED BLOOD COUNT 4.08 X10'6 (4.70-6.10); RED CELL DISTRIBUTION WIDTH 20.9 % (11.5-14.5); WHITE BLOOD COUNT 12.4 X10'3 (4.5-11.0)
[2024-09-25 17:10] LABS: ALANINE AMINOTRANSFERASE 19 U/L (12-78); ALBUMIN 2.2 G/DL (3.4-5.0); ALBUMIN/GLOBULIN RATIO 0.4 (1.1-1.5); ALKALINE PHOSPHATASE 106 IU/L (46-116); ANION GAP 7 (8-16); ASPARTATE AMINO TRANSFERASE 26 U/L (10-37); BILIRUBIN,TOTAL 0.2 MG/DL (0.1-1.0); BLOOD UREA NITROGEN 13 MG/DL (7-18); BUN/CREATININE RATIO 17.6 (10.0-20.0); C-REACTIVE PROTEIN 13.39 MG/DL (0.0-0.5); CHLORIDE 99 MMOL/L (99-107); CREATININE 0.74 MG/DL (0.60-1.10); GLUCOSE 144 MG/DL (70-104); POTASSIUM 3.4 MMOL/L (3.5-5.1); SODIUM 135 MMOL/L (135-145); TOTAL CARBON DIOXIDE 29.4 MMOL/L (24-32); TOTAL PROTEIN 7.3 G/DL (6.4-8.2); eCRCL 124 ML/MIN; eGFR > 90 ML/MIN
--- NOTE | 2024-09-25 17:32 | Physician Documentation ---
History of Present Illness ~ Chief Complaint: Medical Clearance Stated Complaint: MED CLEARANCE Time Seen by MD: 15:22 [facility] Source: police Mode of Arrival: Police Exam Limitations: intoxication HPI This is a 34-year-old male brought in by law enforcement for medical clearance, patient was found next to drug smoking paraphernalia asleep in a public area. Patient has a significantly swollen right thumb and hand which prompted law enforcement to bring patient to the hospital for medical clearance prior to booking to [facility]. Patient is somewhat somnolent and uncooperative during history and physical though patient reports no injuries to the thumb, patient reports that has been swelling for the past 2-3 days. Patient reports no fever. Patient denies illicit drug use. Tetanus within 5 years?: No Medication Reconciliation Allergies: Coded Allergies: Penicillins (Verified Allergy, Unknown, 09/25/24) Scheduled Olanzapine (Zyprexa), 1 TAB PO HS Miscellaneous Medications Home Med List (No Home Medications), (Reported) Past Medical History Past Medical History: Anxiety, Depression, Schizophrenia Past Surgical History: orthopedic surgeries Patient History: Alive Alcohol Use: Occasionally Drug Use: marijuana, methamphetamine, heroin Review of Systems ROS Right thumb pain and swelling as stated above in the HPI, otherwise all systems are reviewed and negative. Physical Exam Vital Signs: Temperature: 99.3, Source: Oral, Heart Rate: 93, Respiratory Rate: 17, BP: 123/80, Pulse Oximetry: 100, Weight: 63.640 Oxygen Flow Rate: 0 Physical Exam VITALS: Reviewed and as above. GENERAL: Somnolent though easily rousable and oriented x4, disheveled appearing, nontoxic appearing, no apparent distress. EENT: Pupils 3 mm though equal and reactive to light, EOMI RESPIRATORY: No increased work of breathing, no respiratory distress, speaking in full clear sentences, clear lung sounds in all nava CV: Tachycardic otherwise Regular rate and rhythm no murmur BACK: No CVA tenderness GI: Nondistended, soft, nontender, no rebound no guarding MUSCULOSKELETAL: Right thumb significantly swollen erythematous tender to palpation with swelling extending into right hand, fluctuant area to the medial aspect of the thumb Progress Progress Note [id number]: spoke with on-call orthopedist Dr. Mcdonald who kindly accepts to evaluate patient after he is admitted, Dr. Mcdonald agrees with antibiotic choice of Rocephin and vancomycin. 1938: I spoke with hospitalist resident Dr. Huntley who kindly accepts patient for admission Results/Orders Results/Orders Orders - JUSTUS HERRERA Hand, Complete (3vw Min) (09/25/24 15:13) Culture Blood (09/25/24 16:16) Page Hospitalist (09/25/24 17:45) Fill Out Med Reconciliation (09/25/24 17:45) Vancomycin/Ns 1 Gm Add-Muse (Vancomyc (09/25/24 19:00) Completed Orders - JUSTUS HERRERA Cbc/Diff (09/25/24 15:13) CMP (09/25/24 15:13) Hand, Complete (3vw Min) (09/25/24 15:13) C-Reactive Protein (09/25/24 16:16) ESR (09/25/24 16:16) Lacticsepsis (09/25/24 16:16) Vancomycin*Pharmacy To Dose* (Vancomycin (09/25/24 17:45) Ceftriaxone/T5e-Gvufoiuq 1gm (Rocephin 1 (09/25/24 18:45) Normal Saline 1000ml (Sodium Chloride 10 (09/25/24 18:45) Hgb A1c (09/25/24 16:27) Vital Signs 09/25/24 09/25/24 09/25/24 09/25/24 15:06 16:38 18:40 18:40 Temp 99.3 Pulse 110 93 90 Resp 14 17 16 18 B/P (MAP) 134/65 123/80 (94) 132/80 (97) Pulse Ox 98 100 99 O2 Flow Rate 0 0 0 09/25/24 20:06 Pulse 84 Resp 16 B/P (MAP) 136/93 (107) Pulse Ox 100 Laboratory Tests Test 09/25/24 16:27 09/25/24 16:37 White Blood Count 12.4 H Red Blood Count 4.08 L Hemoglobin 8.9 L Hematocrit 27.4 L Mean Corpuscular Volume 67.1 L Mean Corpuscular Hemoglobin 21.8 L Mean Corpuscular Hemoglobin Concent 32.5 L Red Cell Distribution Width 20.9 H Platelet Count 541 H Mean Platelet Volume 6.5 L Neutrophils (%) (Auto) 81.3 H Lymphocytes (%) (Auto) 9.5 L Monocytes (%) (Auto) 8.3 Eosinophils (%) (Auto) 0.6 Basophils (%) (Auto) 0.3 Neutrophils # (Auto) 10.1 H Lymphocytes # (Auto) 1.2 Monocytes # (Auto) 1.0 H Eosinophils # (Auto) 0.1 Basophils # (Auto) 0.0 CBC Comment Platelet Estimate Increased Red Blood Cell Morphology Perf Polychromasia Few Hypochromasia 1+ Basophilic Stippling Anisocytosis 3+ Microcytosis 2+ Schistocytes Few Sodium Level 135 Potassium Level 3.4 L Chloride Level 99 Carbon Dioxide Level 29.4 Anion Gap 7 L Blood Urea Nitrogen 13 Creatinine 0.74 Estimated GFR/1.73 m2 > 90 BUN/Creatinine Ratio 17.6 Glucose Level 144 H Hemoglobin A1c 5.6 Lactic Acid Level 1.2 Calcium Level 8.0 L Total Bilirubin 0.2 Aspartate Amino Transf (AST/SGOT) 26 Alanine Aminotransferase (ALT/SGPT) 19 Alkaline Phosphatase 106 C-Reactive Protein 13.39 H Total Protein 7.3 Albumin 2.2 L Globulin 5.1 H Albumin/Globulin Ratio 0.4 L Chemistry Comments Erythrocyte Sedimentation Rate 69 H Microbiology Date/Time Source Procedure Growth Status 09/25/24 16:37 Blood Arm Left Blood Culture - Preliminary NEGATIVE (LESS THAN 24 HOURS) Resulted EKG/XRAY/CT/US/VASC/MRI Bone/Soft Tissue X-Ray (Ext.) : Additional Comment CLINICAL INDICATION: R hand swollen TECHNIQUE: 3-view right hand DI HAND, COMPLETE (3VW MIN) FINDINGS/IMPRESSION: : There is no evidence of acute fracture or dislocation. Soft tissues are unremarkable. Electronically Signed by:RENAE BARKLEY MD Date & Time: 09/25/24 1602 Dictated by: RENAE BARKLEY MD Dictation date and time: 09/25/24 1533 I have reviewed and agree with the radiology report. I have reviewed and interpreted the imaging as: Significant soft tissue swelling, no evidence of fracture or dislocation Medical Decision Making Findings This 34-year-old male presented by law enforcement for medical clearance for acevedo ngozi to [facility], on physical exam patient had a significantly swollen right hand, patient appeared intoxicated likely under the influence of an opioid given history of patient being found next to trunk paraphernalia hand miotic pupils, patient is protecting his airway and has adequate respiratory drive without evidence of hypoxia. Patient was significantly tachycardic though this is attributed to likely combined methamphetamine use in pain as patient is otherwise hemodynamically stable. X-ray of hand did not determine fracture or dislocation though significant soft tissue swelling indicates cellulitis or deep abscess of the area which is consistent with physical exam. Labs demonstrated evidence of leukocytosis and elevated ESR and CRP. While in department patient was hemodynamically stable without evidence of sepsis though patient is at risk of developing systemic infection as infection hand does seem quite serious and will require admission for IV antibiotics. On-call orthopedic surgeon contacted and agrees to consult on patient, hospitalist team contacted and kindly accepts patient for admission. Differential Dx:Considerations: Include: Intoxication-Alcohol, Intoxication- Other drug, Skull fracture, Foreign body, Other (Sepsis, flexor tenosynovitis, abscess, septicemia, osteomyelitis) Departure Disposition: ADMITTED INPATIENT Admitted to Inpatient Unit: to hospitalist Impression: Primary Impression: Cellulitis of thumb, right Additional Impression: Abscess of thumb, right Condition: Guarded Referrals: NO PRIMARY CARE PROVIDER (PCP) Signature Scribe Signature: No scribe Attestation: The note accurately reflects work and decisions made by me.MAX Damon 09/26/24 03:21 JUSTUS HERRERA Sep 25, 2024 17:32
[2024-09-25 18:14] LABS: PLATELET ESTIMATE INCREASED
[2024-09-25 18:15] LABS: ANISOCYTOSIS 3+; HYPOCHROMASIA 1+; MICROCYTOSIS 2+; SCHISTOCYTES FEW
[2024-09-25 18:16] LABS: POLYCHROMASIA FEW
[2024-09-25] MEDS: CefTRIAXone/D5W-Rocephin 1gm 50 ML IV ONE (19:06)
[2024-09-25] MEDS: normal saline 1000ML IV soln IVB ONE (19:06)
[2024-09-25] MEDS: vancomycin/NS 1 GM ADD-VANTAGE 250 ML IV SCH (19:08)
[2024-09-25] MEDS ORDERED: magnesium sulf-water 4G/100mL 100 ML IV PRN (22:30)
[2024-09-25] MEDS ORDERED: morphine 2 MG/ML inj. syringe IV PRN (22:30)
[2024-09-25] MEDS ORDERED: acetaminophen 325mg tablet PO PRN (22:30)
[2024-09-25] MEDS ORDERED: magnesium sulf-water 2g/50mL 50 ML IV PRN (22:30)
[2024-09-25] MEDS ORDERED: magnesium Cl slow-release 64mg tablet PO PRN (22:30)
[2024-09-25] MEDS ORDERED: potassium Cl 20 mEq SR tablet PO PRN ×2 (22:30)
[2024-09-25] MEDS ORDERED: magnesium hydroxide 30ml (MOM) UD suspension PO PRN (22:30)
[2024-09-25] MEDS ORDERED: ondansetron/PF 4mg/2ml inj IV PRN (22:30)
[2024-09-25] MEDS ORDERED: potassium Cl 40MEQ/1/2NS 520ml 520 ML IV PRN (22:30)
[2024-09-25] MEDS ORDERED: mag hydrox/Alum hydrox/simeth 30ml oral suspension PO PRN (22:30)
[2024-09-25 22:40] VITALS: BP 143/80; PULSE 89; RESP 16; TEMP 99.2; O2SAT 99
[2024-09-25 22:46] LABS: HEMOGLOBIN A1C 5.6 % (4.5-6.2)
--- NOTE | 2024-09-25 22:50 | HISTORY AND PHYSICAL-Residence ---
History & Physical Providers to CC Resident Creating Document: KIMBERLY HUNTLEY, RES CC: MANSOOR ISABEL MD ~ History of Present Illness Primary Medical Doctor: [facility]; [place] Reason for Admit\Complaint: Medical clearance History of Present Illness A 34-year-old male with no past medical history was brought in by the [employer] for medical clearance. Patient was found to have swelling erythema and pain of his right thumb. Patient is a poor historian and was not giving any pertinent history. Besides this patient denies fever chills. Patient states that that has increased pain on keeping the finger upright. Allergies: Coded Allergies: Penicillins (Verified Allergy, Unknown, 09/25/24) Home Medications Home Medications Active Zyprexa (Olanzapine) 2.5 Mg Tablet 1 Tab PO HS Reported No Home Medications (Home Med List) Each Past Medical History Past Medical History None Past Surgical History Surgical History Comment Hip, jaw, back surgery Family History Family History: Alive Past Social History Social History Comment Recently incarcerated Was not able to get any further history as the patient is non cooperative Smoking: Cigarettes Alcohol Use: Occasionally Drug Use: Marijuana, Methamphetamine, Heroin ROS ROS All other systems reviewed in full and negative except for the pertinent positives mentioned in the HPI Exam Vitals: Vital Signs Date Time Temp Pulse Resp B/P (MAP) Pulse Ox O2 Delivery O2 Flow Rate FiO2 09/25/24 22:08 98.4 94 16 143/94 (110) 99 0 General: General: Drowsy, confused male, not in acute distress HEENT: PERRLA, no icterus, pallor, lymphadenopathy, carotid bruit Respiratory system: Bilateral vesicular breath sounds heard, no adventitious breath sounds CVS: S1-S2 heard, no murmurs/rubs/gallop GI: Soft, nontender, no organomegaly, no guarding/rigidity, bowel sounds present Neuro: No focal neurological deficits present Extremities: No edema cyanosis clubbing Musculoskeletal: Erythematous warm, swollen right thumb with an area of fluctuance. Skin: Warm and dry Diagnostic Data Last Recorded Lab Results: 09/25/24 1627 09/25/24 1627 Advance Care Planning Advanced Care plannin - 30 Minutes (I spent 20 minutes discussing various resuscitative measures and the patient decided to be full code) Additional Plan Assessment: A 34-year-old male with no significant past medical history has been pertinent for medical care and some was found to have swelling pain and erythema of his right thumb. Patient is admitted for the evaluation management of cellulitis of the right thumb with possible underlying abscess. Plan: Right thumb cellulitis Possible underlying abscess Necrotizing fasciitis, rule out X-ray: No fracture or dislocation Elevated WBC count, C-reactive protein Patient received one dose of ceftriaxone and vanc in the ED Patient will be continued on vancomycin and aztreonam in view of allergy to penicillins Dr. Mcdonald consulted, awaiting recommendations Pain management Follow up with CT hand, patient might benefit from MRI head to rule out osteomyelitis if present any Microcytic anemia Hemoglobin: 8.9 Follow up with iron studies Transfuse if hemoglobin less than seven Might require further evaluation Follow up with U tox, echo Code status: Full code Diet: NPO DVT prophylaxis: Heparin Disposition: Admit to [facility], consultation with Dr. Mcdonald in a.[facility] Cherri Huntley MD Internal Medicine, PGY 1 I discussed the patient with the resident and agree with the assessment and plan as above. Mansoor Isabel MD Critical Care Date of Service: Sep 25, 2024 Billing Provider: MANSOOR ISABEL MD, SIVA, RES Sep 25, 2024 22:50 MANSOOR ISABEL MD Sep 26, 2024 03:18
[2024-09-26] VITALS (19 sets, daily range): BP systolic 117–139; BP diastolic 66–92; PULSE 70–93; RESP 15–24; TEMP 96.6–98.2; O2SAT 97–100
[2024-09-26 00:09] LABS: % IRON SATURATION 7 % (11-46); IRON 10 UG/DL (53-167); TOTAL IRON BINDING CAPACITY 139 UG/DL (259-388)
[2024-09-26] MEDS: vancomycin inj 500 MG in normal saline 100ml IV soln 100 ML IV ONE (00:25)
[2024-09-26] MEDS: normal saline 1000ml 1,000 ML IV SCH (01:01)
[2024-09-26 01:37] LABS: BILIRUBIN,URINE NEGATIVE (Neg); CLARITY,URINE CLEAR (Clear); COLOR,URINE YELLOW (Yellow); GLUCOSE, URINE NEGATIVE (Neg); KETONES,URINE NEGATIVE (Neg); LEUKOCYTE ESTERASE ,URINE NEGATIVE (Neg); NITRITES, URINE NEGATIVE (Neg); OCCULT BLOOD,URINE NEGATIVE (Neg); PROTEIN,URINE NEGATIVE (Neg); UROBILINOGEN,URINE 0.2 E.U/dL (0.2-1.0)
[2024-09-26 01:38] LABS: UA COLLECTION TYPE URINAL
--- NOTE | 2024-09-26 01:41 | RADIOLOGY REPORT ---
CHEST RADIOGRAPH Indication: pneumonia Technique: Single frontal view of the chest was obtained Comparison: None FINDINGS: Lines and Tubes: None Lungs: Clear Pleura: No effusion. No pneumothorax. Cardiomediastinal contours: Unremarkable Bones: Unremarkable IMPRESSION: Clear lungs.
[2024-09-26 01:45] LABS: URINE AMPHETAMINE SCREEN POSITIVE (Neg); URINE BARBITUATE SCREEN NEGATIVE (Neg); URINE BENZODIAZEPINES SCREEN NEGATIVE (Neg); URINE CANNABINOID SCREEN NEGATIVE (Neg); URINE COCAINE SCREEN NEGATIVE (Neg); URINE METHADONE SCREEN NEGATIVE (Neg); URINE OPIATE SCREEN NEGATIVE (Neg); URINE PHENCYCLIDINE SCREEN NEGATIVE (Neg)
[2024-09-26] MEDS: WATER IV ONE (02:31)
[2024-09-26] MEDS: VANCOMYCIN IV ONE (02:31)
[2024-09-26] MEDS: heparin, porcine 5000 units/ml vial SQ SCH (08:00)
[2024-09-26] MEDS: K and/or MAG REPLACEMENT MC SCH (08:00)
[2024-09-26] MEDS: docusate sod 100mg capsule PO SCH (08:00)
[2024-09-26] MEDS ORDERED: vancomycin/NS 1 GM ADD-VANTAGE 250 ML IV SCH (08:00)
[2024-09-26] MEDS ORDERED: levoFLOXACIN-Levaquin 750MG/D5 150 ML IV SCH (08:00)
[2024-09-26] MEDS: aztreonam inj. 1,000 MG in normal saline 100ml IV soln 100 ML IV SCH (08:14)
[2024-09-26] MEDS ORDERED: sevoflurane 250ml liquid IH ONE (14:15)
[2024-09-26] MEDS ORDERED: HYDROmorphone/PF 0.2 MG/ML SYRINGE IV PRN ×2 (14:30)
[2024-09-26] MEDS ORDERED: ondansetron/PF 4mg/2ml inj IV PRN (14:30)
[2024-09-26] MEDS ORDERED: labetalol 20mg/4ml (5mg/ml) syringe IV PRN (14:30)
[2024-09-26] MEDS ORDERED: acetaminophen 1,000mg/100ml IV 100 ML IV PRN (14:30)
[2024-09-26] MEDS ORDERED: proCHLORperazine 10 MG/2 ml inj IV PRN (14:30)
[2024-09-26] MEDS ORDERED: bacitracin 15gm ointment TP ONE (14:30)
[2024-09-26] MEDS ORDERED: morphine 4 MG/ML inj SYRINge IV PRN (14:30)
[2024-09-26] MEDS ORDERED: hydrALAZINE 20mg/ml inj. IV PRN (14:30)
[2024-09-26] MEDS ORDERED: morphine 2 MG/ML inj. syringe IV PRN (14:30)
[2024-09-26] MEDS ORDERED: meperidine/PF 25mg/ml syringe IV PRN (14:30)
[2024-09-26] MEDS ORDERED: BUPIVAcaine 2.5mg/ml inj 50ml vial (contains preservative) ONE (14:31)
[2024-09-26] MEDS ORDERED: fentaNYL/PF 50MCG/1 ML 2ML syringe ONE (14:40)
[2024-09-26] MEDS ORDERED: midazolam 1 mg/ML 2ml injection ONE (14:57)
[2024-09-26] MEDS ORDERED: propofol inj 20 ML IV ONE (15:14)
[2024-09-26] MEDS ORDERED: ondansetron/PF 4mg/2ml inj ONE (15:14)
[2024-09-26] MEDS ORDERED: LIDOcaine 2% (20mg/ml) 5ml vial ONE (15:14)
[2024-09-26] MEDS ORDERED: dexamethasone sod phosphate 4mg/ml inj. ONE (15:14)
[2024-09-26] MEDS ORDERED: clindamycin-Cleocin 900mg/D5W 50 ML IV ONE (15:25)
[2024-09-26] MEDS ORDERED: morphine 4 MG/ML inj SYRINge ONE (16:25)
--- NOTE | 2024-09-26 16:33 | CONSULTATION REPORT ---
History of Present Illness Providers to CC ~ Reason for Admit\Admit Dx: Medical clearance Refering MD: [facility]; [place] History of Present Illness 34-year-old male presented to the emergency room with the pain and swelling involving his right hand. He is brought in as custody of the [facility] longterm secondary to a recent incarceration. The patient is unable to give well not willing to give a history with regards to any particular injury or the etiology of the cause of the infection involving his right hand. He denies any other complaints or problems. Past medical history. Patient is noncooperative and does not give a history. What history there is this is as per the admitting history and physical. Examination: Patient is somnolent but is arousable answers to himself by his name. Patient has been prone to burst of outbursts of violence during the day. Patient agreed to let me evaluate his hand of the hospital room the gauze dressing was removed and a and was inspected patient was able to flex and extend his 5th 4th 3rd some degree of 2nd finger was having significant pain involving the use of his thumb. Does not report any altered sensation but again this relative noncompliant at this time patient has refused MRI study of the hand and a CT scan of the hand x-rays were within normal limits. Hand exam reveals extensive infected pemphigus blistering involving the entirety of the thumb into the dorsum of the hand and thenar region of the hand. This is purulent material. He had extensive swelling involving the dorsum and palmar aspect of his hand and passive range of motion to his thumb was post painful. No wrist or elbow or shoulder involve. No ascending lymphangitis. There was a small punctate dark area of skin necrosis of the tip of his right thumb with purulent exudate exiting this area. As stated earlier of the x-rays were within normal limits however there is evidence of significant soft tissue swelling without in the subcutaneous air. The balance of his orthopedic exam of the limited is unremarkable. Assessment: Patient has an acute cellulitis possible septic tenosynovitis involving the thumb. Extensive skin involvement potentially compromising viability of the stem. Area of skin subcutaneous necrosis and found in the tip of the thumb. Plan: Patient has agreed to undergo emergent treatment of the hand and compartmental released for potential compartment syndrome to the hand. I obtained informed consent. Taken to the operating room next available room. Thank you for the consultation Allergies: Coded Allergies: Penicillins (Verified Allergy, Unknown, 09/25/24) Home Medications Home Medications Active Zyprexa (Olanzapine) 2.5 Mg Tablet 1 Tab PO HS Reported No Home Medications (Home Med List) Each Past Family History Family History: Alive Physical Exam Last Vital Signs Recorded: Temperature: 98.2, Source: Axillary, Heart Rate: 89, Respiratory Rate: 15, BP: 132/66, Pulse Oximetry: 99, Weight: 63.640 Results Diagram Lab Result Diagram: 09/25/24 1627 09/25/24 1627 CUCA GARDUNO MD Sep 26, 2024 16:33
--- NOTE | 2024-09-26 16:43 | OPERATIVE REPORT ---
Operative Report Providers to CC ~ Date of Procedure: Sep 26, 2024 Pre-Operative Diagnosis: RIGHT THUMB CELLULITIS Post-Operative Diagnosis SAME as PRE-Op early compartment syndrome Procedure Performed I&D right thumb excision of necrotic skin tissue epithelial tissue exploration of the flexor tendon sheath of the 1st compartment decompression of the compartments to the hand with multiple incisions. Surgeon: Baljinder Garduno MD Menagerie Superintendent No customer support assistant Anesthesiologist: Miryam Cox Type of Anesthesia: General Findings: Patient was found to have significant soft tissue necrosis of the finger tip of the thumb and the pad of the finger that involved the distal phalanx without flexor tendon sheath involvement. Extensive epithelial degloving occurred secondary to infected in excess extensive blistering of the thumb. Marked edema to the extensor and flexor compartments of the hand requiring fasciotomies. Complications None Prosthetics\Implants used: None Estimated Blood Loss: 100 cc Specimen Removed: Extensive purulent tissue and material exudate involving the thumb from the tip of the thumb to the base of the 1st metacarpal phalangeal joint not involving the joint itself nor the flexor tendon sheath. Extensive edema involving all compartments of the hand requiring fasciotomy Description of Procedure: Patient was taken to the operating room on any urgent emergent basis due to significant swelling and pain marked purulent blistering involving his thumb. Patient was noncompliant with regards to workup he refused CT scan and MRI evaluation in his thumb therefore the need to do an emergent exploration was indicated and the patient agreed after discussion the the potential of him losing his thumb or the use of the hand on a permanent basis. Once in the operating room in the right arm was prepped and draped in usual sterile orthopaedic fashion tourniquet had been placed in the upper arm and had instant was insufflated the 1st incision without the use of an Esmarch. With the thumb was approached 1st. The elevated epithelial layer of the skin had to be debrided as it was completely detached and full of pus once this was decompressed the is this did skin was excised the areas an area of necrotic tissue and a puncture wound of the tip of the thumb this was extensively debrided with a sharp dissection using found with scissors purulent material was evidence all the way to midportion of the distal phalanx on the palmar side without involvement of the flexor tendon sheaths surprisingly. Flexor tendon sheath proximally into the reason of the thenar was incision was made to expose this area and decompress this compartment and going through with careful dissection the flexor tendon sheath was entered and found to have edema but then purulence. I would like to do fasciotomies involving the dorsum and palmar aspect of the hands with four separate incisions one in between the and involving the webspace of the thumb and index finger one between the 2nd 3rd finger one between the 3rd and 4th finger wound between the 4th and 5th finger dissection revealed extensive edema of the fascia is were released to expose swollen muscles but with good vascularity and contraction. Thenar incision made earlier showed viable muscle was with significant edema. No other additional incisions were acquired. Copious irrigation was Aricept was now used prior to application of Xeroform overall the assistance tissues with the there was no closure of the any of the incisions requiring the potential need for a second-look operation in the near future. A bulky hand dressing was applied the tourniquet was released good capillary refill returned to all digits at the fingertips. Patient was now extubated and taken to recovery room in stable condition needle and sponge count was reported to be correct Counts repoted as correct: Yes BALJINDER GARDUNO MD Sep 26, 2024 16:43
--- NOTE | 2024-09-26 18:00 | PROGRESS NOTE- Residence ---
Progress Note - Resident Providers to CC Resident Creating Document: YISEL MOSER RES ~ Antibiotic Timeout Antibiotic Ordered?: Yes Subjective Patient seen and examined at bedside. He has been agitated and has also refused to go for CT. He denies any complaints at this time. Objective Vital Signs Date Time Temp Pulse Resp B/P (MAP) Pulse Ox O2 Delivery O2 Flow Rate FiO2 09/26/24 17:45 96.9 77 16 131/84 (100) 100 Room Air 09/26/24 17:15 0.0 Result Diagram: 09/25/24 1627 09/25/24 1627 General: Awake and Alert, no acute distress. HEENT: Conjunctiva pink, Sclera clear, Mucus Membranes moist. Neck: Supple without masses and tenderness. Resp: Unlabored. Equal breath sounds bilaterally. Heart: Regular rhythm, normal S1 and S2, no rub, murmur or gallop. Abdomen: Soft and non tender no organomegaly. Normal bowel sounds x4 quadrant normoactive. No guarding or rigidity. Extremities: Right thumb cellulitis with edema, erythema and purulent drainage. Generalized right hand swelling and restricted range of motion. 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 Skin: Warm and Dry. Assessment Assessment A 34-year-old male with no significant past medical history has been pertinent for medical care and some was found to have swelling pain and erythema of his right thumb. Patient is admitted for the evaluation management of cellulitis of the right thumb with possible underlying abscess. Plan Plan Acute cellulitis of right thumb Possible septic tenosynovitis involving the thumb Potential compartment syndrome of the hand X-ray shows no fracture/dislocation Elevated white count, CRP and ESR Was started on vancomycin and aztreonam, DC aztreonam continue vanc Dr. Mcdonald consulted, appreciate recommendations Patient refused CT/MRI Echo no signs of endocarditis S/p I&D right thumb and excision of necrotic skin , exploration of the flexor tendon sheath of the 1st compartment and decompression of the compartments of the hand with multiple incision by Dr. Mcdonald. Follow up with wound cultures Microcytic hypochromic anemia H&H 8.9, 27.4 UTox positive for meth and fentanyl Code Status: Full code DVT prophylaxis: Heparin Analgesia/sedation: Morphine/[place] Line/tube: PIV GI prophylaxis: None Nutrition: Regular diet Prognosis: Guarded Disposition: Continue medical management. Yisel Moser MD. IM Resident PGY-2 Addendum polysubstance abuse, + for meth, fentanyl, denied injecting Date of Service: Sep 26, 2024 Billing Provider: TAHIRA LEE MD Common Visit Codes: [id number] INP/OBS CARE(HIGH) YISEL MOSER, JAIME Sep 26, 2024 18:00 TAHIRA LEE MD Sep 26, 2024 22:03
--- NOTE | 2024-09-26 18:10 | CARDIOLOGY REPORT ---
APPROVED REPORT EXAM: Limited 2D, Doppler, and color-flow Echocardiogram. Patient Location: 4023B Blood Pressure: 136/83 mmHg Heart Rate: 80 bpm Indications Rule Out Endocarditis NO PASSENGER ATTENDANT NO Previous ECHO 2D Dimensions LA Diam2.9 cm IVSd 0.8 (0.7-1.1cm) LVDd 4.7 cm PWd 0.9 (0.7-1.1cm) IVSs 1.4 (0.8-1.2cm) LVDs 2.8 (2.5-4.0cm) PWs 1.5 (0.8-1.2cm) LVOT Diameter 2.23 (1.8-2.4cm) LVEF(%) 70.1 (>50%) Ao Asc Diam.2.82 cm FS (%) 39.6 % SV 70.7 ml CO 5.7 L/min M-Mode Dimensions Left Atrium(MM) 3.41 (2.5-4.0cm) Aortic Root 3.14 (2.2-3.7cm) Aortic Cusp Exc 1.74 (1.5-2.0cm) MV EPSS 0.4 (<0.5cm) Aortic Valve AoV Peak Walter. 149.0 cm/s AoV VTI 29.6 cm AO Peak GR. 8.9 mmHg AO Mean GR. 5 mmHg LVOT VTI 21.60 cm LVOT Peak Walter. 131.6 cm/s CHRISTOPHER(VTI)/BSA 2.85 cm2/m2 CHRISTOPHER (VTI) 2.85 cm2 Mitral Valve MV E Velocity 86.9 cm/s MV Peak Gr. 3 mmHg MV DECEL TIME 228 ms MV A Velocity 71.3 cm/s MV PHT 76 ms E/A Ratio 1.2 MVA (PHT) 2.89 cm2 MV VMax92.7 cm/s TDI Lateral E' P. V18.32 cm/s E/Lateral E' 4.7 Tricuspid Valve TR P. Velocity 139 cm/s RAP ESTIMATE 10 mmHg TR Peak Gr. 8 mmHg RVSP 18 mmHg LEFT VENTRICLE Normal LV size and wall thickness. Overall systolic function is normal. LVEF is 70%. RIGHT VENTRICLE Right ventricle is mildly dilated with adequate function. ATRIA The left atrium size is normal. AORTIC VALVE Trileaflet AV appears mildly sclerotic without stenosis. No insufficiency. No vegetation seen. MITRAL VALVE Mitral valve leaflets are thickened withut stenosis. Trace regurgitatoin. No vegetation seen. TRICUSPID VALVE Tricuspid valve leaflets are thickened and elongated but open well. Trace regurgitation. No vegetati on seen. PULMONIC VALVE The pulmonary valve is normal in structure with physiologic insufficiency. No vegetation seen. GREAT VESSELS The aortic root is normal in size. The ascending aorta is normal in size. IVC not visualized. PERICARDIUM Normal pericardium. No effusion. Other Information Study Quality: Adequate Conclusion Normal LV size and wall thickness. Overall systolic function is normal. LVEF is 70%. Right ventricle is mildly dilated with adequate function. The left atrium size is normal. Trileaflet AV appears mildly sclerotic without stenosis. No insufficiency. No vegetation seen. Mitral valve leaflets are thickened withut stenosis. Trace regurgitatoin. No vegetation seen. Tricuspid valve leaflets are thickened and elongated but open well. Trace regurgitation. No vegeta tion seen. The pulmonary valve is normal in structure with physiologic insufficiency. No vegetation seen. Normal pericardium. No effusion.
[2024-09-26] MEDS: ringers solution, lacted 1,000 ML IV SCH (19:00)
[2024-09-26] MEDS: VANCOMYCIN LEVEL IV ONE (19:05)
[2024-09-26] MEDS: HYDROcodone/acetaminophen 5mg/325mg tablet PO PRN (19:40)
[2024-09-27 02:00] VITALS: BP 141/93; PULSE 71; RESP 15; TEMP 97.9; O2SAT 97
[2024-09-27 06:00] VITALS: BP 143/90; PULSE 72; RESP 14; TEMP 98.7; O2SAT 98
[2024-09-27] MEDS: PERFLUTREN PROTEIN-A MICROSPHR (Optison) 0.22 MG/ML 3ML VIAL IV ONE (08:55)
[2024-09-27 10:00] VITALS: BP 153/97; PULSE 69; RESP 16; TEMP 98; O2SAT 100
[2024-09-27 10:38] VITALS: RESP 18
[2024-09-27] MEDS: HYDROcodone/acetaminophen 10/325mg tab PO PRN (10:38)
[2024-09-27] MEDS ORDERED: VANCOmycin 1250MG/NS 250ml Bag 250 ML IV SCH (11:00)
--- NOTE | 2024-09-27 19:44 | DISCHARGE SUMMARY-Residence ---
Discharge Summary Providers to CC Resident Creating Document: CHELSY MOSER RES ~ Discharge Summary Admission Diagnosis: RIGHT THUMB CELLULITIS Hospital Course DATE OF ADMISSION: 09/25/2024 DATE OF DISCHARGE: 09/27/2024 Hospital course same as mentioned discharge summary. Discharge Diagnosis\Comment: Acute cellulitis of right thumb Possible septic tenosynovitis involving the thumb Potential compartment syndrome of the hand Microcytic hypochromic anemia Polysubstance abuse meth and fentanyl Operations\Procedures: S/p I&D right thumb and excision of necrotic skin , exploration of the flexor tendon sheath of the 1st compartment and decompression of the compartments of the hand with multiple incision by Dr. Mcdonald. On 09/26/2024 Consultants: Dr. Mcdonald Complications: None Condition on DC: Stable Discharge Summary: As per HPI: A 34-year-old male with no past medical history was brought in by the [facility] for medical clearance. Patient was found to have swelling erythema and pain of his right thumb. Patient is a poor historian and was not giving any pertinent history. Besides this patient denies fever chills. Patient states that that has increased pain on keeping the finger upright. Hospital course: On further evaluation x-ray of the right hand showed no fracture or dislocation. He had elevated WBCs, ESR and CRP. Was started on IV antibiotics vancomycin. Orthopedics was consulted. Patient was scheduled for a CT which he refused. He had I and D done by Dr. Mcdonald on 09/26/2024. He also had microcytic anemia, H and H was monitored has been stable. This morning at around 11:25 a.m. patient wanted to leave AMA, was explained the risks of infection and leaving against medical advice he understood and decided to leave. Laboratory Tests Test 09/25/24 23:40 09/26/24 01:10 09/26/24 14:22 09/26/24 18:34 Lactic Acid Level 0.4 MMOL/L Iron Level 10 UG/DL Total Iron Binding Capacity 139 UG/DL Percent Iron Saturation 7 % Transferrin 118 mg/dL Ferritin 114 NG/ML Urine Specimen Description Urinal Urine Color Yellow Urine Clarity Clear Urine pH 6.0 Urine Specific Girard 1.025 Urine Protein Negative mg/dl Urine Glucose (UA) Negative mg/dl Urine Ketones Negative mg/dl Urine Occult Blood Negative Urine Nitrite Negative Urine Bilirubin Negative Urine Urobilinogen 0.2 E.U/dL Urine Leukocyte Esterase Negative Urine Culture Indicated Not ind Volume Urine Centrifuged 10 ml Urine Comment Urine Opiates Screen Negative Urine Methadone Screen Negative Urine Fentanyl Screen Positive Urine Barbiturates Screen Negative Urine Phencyclidine Screen Negative Urine Amphetamines Screen Positive Urine Benzodiazepines Screen Negative Urine Cocaine Screen Negative Urine Cannabinoids Screen Negative Drug Screen Comment Glucometer 85 mg/dl Vancomycin Level Trough 12.4 ug/mL *Problems/Diagnosis: (1) Cellulitis of thumb, right Status: Acute Total Time Spent on D/C: > 30 Minutes Date of Service: Sep 27, 2024 Billing Provider: TAHIRA LEE MD Common Visit Codes: 99919-NIQ/OBS DISCH DAY >30min CHELSY MOSER, RES Sep 27, 2024 19:44 TAHIRA LEE MD Sep 27, 2024 22:12
[2024-09-28] MEDS ORDERED: BUPR1FIL5 SL (02:42)
[2024-09-28] MEDS ORDERED: VANCOMYCIN LEVEL IV ONE (10:30)
== END 2024-09-27 11:30 | disposition left against medical advice (07) | DRG 364 ==
LOC: ER 14:45 → EEVIPCON 14:45 → ED HOLD 20:44 → ORTHO 4S 22:26
PROVIDERS: ADMIT Internal Medicine Pulmonary Disease; ATTEND Internal Medicine
PROC: 0KNC0ZZ Release Right Hand Muscle, Open Approach (ICD-10-PCS; 2024-09-26)
PROC: 0PBR0ZZ Excision of Right Thumb Phalanx, Open Approach (ICD-10-PCS; principal; 2024-09-26 14:41)
DX: L03.011 Cellulitis of right finger (principal); T79.A12A Traumatic compartment syndrome of left upper extremity, initial encounter; I96 Gangrene, not elsewhere classified; F10.90 Alcohol use, unspecified, uncomplicated; D50.8 Other iron deficiency anemias; F19.10 Other psychoactive substance abuse, uncomplicated; F20.9 Schizophrenia, unspecified; L02.512 Cutaneous abscess of left hand; M65.842 Other synovitis and tenosynovitis, left hand; F32.A Depression, unspecified; Z53.21 Procedure and treatment not carried out due to patient leaving prior to being seen by health care provider; F41.9 Anxiety disorder, unspecified; X58.XXXA Exposure to other specified factors, initial encounter; Z88.0 Allergy status to penicillin; Y93.89 Activity, other specified; Y92.89 Other specified places as the place of occurrence of the external cause; Y99.8 Other external cause status; Z91.199 Patient's noncompliance with other medical treatment and regimen due to unspecified reason
CPT/HCPCS: 36415; 71045; 73130; 80053; 80202; 80305; 81003; 82728; 82948; 83036; 83540; 83550; 83605; 84466; 85008; 85025; 85651; 86140; 87040; 87070; 87075; 87077; 87081; 87186; 93308; 96365; 99285; A4618; A6222; A6223; A6258; A6446; A6449; A7000; G0378; J0131; J0696; J1100; J1644; J2003; J2250; J2270; J2405; J2704; J3010; J3370; J3372; J3490; J7030

== ENCOUNTER 2024-09-28 01:17 | Inpatient (IN) | payer MEDICAID ==
[~2024-09-28] VITALS: Ht 177.8 cm; Wt 63.6 kg
--- NOTE | 2024-09-28 01:45 | Physician Documentation ---
History of Present Illness ~ Chief Complaint: Post-operative complication Stated Complaint: WOUND CHECK Time Seen by MD: 01:40 Primary Medical Doctor: [facility]; [facility] Patient presents to the emergency room for evaluation of right upper extremity hand pain. He was seen here recently in his seen by it with a piece with seemed to a performed fasciotomy. He left against medical advice. He states he will stay this time. Tetanus within 5 years: No Medication Reconciliation Allergies: Coded Allergies: Penicillins (Verified Allergy, Unknown, 09/28/24) Scheduled Buprenorphine Hcl/Naloxone Hcl (Suboxone 4 Mg-1 Mg Sl Film), 1 STRIP SL Q12H, (Reported) Discontinued Medications Home Med List (No Home Medications), (Reported) Discontinued Reason: patient no longer taking Olanzapine (Zyprexa), 1 TAB PO HS Discontinued Reason: patient no longer taking Past Medical History Past Medical History: Anxiety, Depression, Schizophrenia Past Surgical History: orthopedic surgeries Patient History: Alive Alcohol Use: Occasionally Drug Use: marijuana, methamphetamine, heroin Review of Systems ROS All review of systems negative except as per HPI Physical Exam Vital Signs: Temperature: 98.9, Source: Oral, Heart Rate: 102, Respiratory Rate: 18, BP: 144/87, Pulse Oximetry: 99, Weight: 63.640 Physical Exam General: Patient is sleeping, easily arousable in no acute distress. Head: Normocephalic and atraumatic. Eyes: Conjunctival normal. EOMI. PERRL. ENT: Mucous membranes moist. Neck: Supple, trachea is midline. Chest: Clear to auscultation bilaterally without rales, rhonchi, or wheezes. There is no accessory muscle use or retractions. Cardiac: RRR without murmurs, gallops, or rubs. Abd: Soft, nondistended, nontender, with normoactive bowel sounds. No guarding, rebound, or rigidity. Extremities: Right upper extremity with surgical incisions noted in multiple places throughout the hand and thumb with no signs of eimly infection Progress Results/Orders Results/Orders Orders - DANTE LAINEZ MD Vancomycin/Ns 1 Gm Add-[place] (Vancomyc (09/28/24 01:55) Electrocardiogram (09/28/24 01:49) Urinalysis, Cult If Indicated (09/28/24 01:49) Chest,Single View (09/28/24 01:49) Page Hospitalist (09/28/24 02:36) Fill Out Med Reconciliation (09/28/24 02:36) Completed Orders - DANTE LAINEZ MD Cbc/Diff (09/28/24 01:49) MG (09/28/24 01:49) Chest,Single View (09/28/24 01:49) Normal Saline 1000ml (Sodium Chloride 10 (09/28/24 01:50) Procalcitonin (09/28/24 01:49) BMP (09/28/24 01:49) Medications Received in ER Medications (Trade) Dose Ordered Sig/Aydee Route PRN Reason Start Time Stop Time Status Last Admin Dose Admin Vancomycin HCl 250 ml @ 166 mls/hr ONCE ONCE IV 09/28/24 01:55 09/28/24 03:25 09/28/24 02:40 166 MLS/HR (sodium chloride 1000ml IV soln) 2,000 ml ONCE ONCE IV 09/28/24 01:50 09/28/24 01:53 DC 09/28/24 02:40 2,000 ML Vital Signs 09/28/24 09/28/24 01:22 01:53 Temp 98.9 Pulse 102 68 Resp 18 15 B/P (MAP) 144/87 142/90 (107) Pulse Ox 99 98 Laboratory Tests Test 09/28/24 01:45 White Blood Count 13.3 H Red Blood Count 4.53 L Hemoglobin 9.8 L Hematocrit 31.3 L Mean Corpuscular Volume 69.1 L Mean Corpuscular Hemoglobin 21.7 L Mean Corpuscular Hemoglobin Concent 31.5 L Red Cell Distribution Width 21.6 H Platelet Count 678 H Mean Platelet Volume 6.7 L Neutrophils (%) (Auto) 75.9 H Lymphocytes (%) (Auto) 14.3 L Monocytes (%) (Auto) 8.9 Eosinophils (%) (Auto) 0.2 Basophils (%) (Auto) 0.7 Neutrophils # (Auto) 10.1 H Lymphocytes # (Auto) 1.9 Monocytes # (Auto) 1.2 H Eosinophils # (Auto) 0.0 Basophils # (Auto) 0.1 CBC Comment Platelet Estimate Increased Red Blood Cell Morphology Perf Basophilic Stippling Anisocytosis 3+ Microcytosis 2+ Sodium Level 141 Potassium Level 3.6 Chloride Level 105 Carbon Dioxide Level 26.7 Anion Gap 9 Blood Urea Nitrogen 10 Creatinine 0.63 Estimated GFR/1.73 m2 > 90 BUN/Creatinine Ratio 15.9 Glucose Level 99 Calcium Level 7.9 L Magnesium Level 2.1 Albumin 2.2 L Procalcitonin < 0.05 Chemistry Comments EKG/XRAY/CT/US/VASC/MRI EKG : Additional Comment EKG interpreted by myself shows time of 0157, rate 64, sinus rhythm, normal axis, no ST changes Chest X-Ray : Additional Comments Exam: CHEST,SINGLE VIEW CHEST RADIOGRAPH Indication: SEPSIS Technique: Single frontal view of the chest was obtained COMPARISON: DI CHEST,SINGLE VIEW on DOS: 09/25/24 FINDINGS: Lines and Tubes: None Lungs: Clear Pleura: No effusion. No pneumothorax. Cardiomediastinal contours: Unremarkable Bones: Unremarkable IMPRESSION: 1. No acute disease. Medical Decision Making Findings Patient presents back to the emergency room after leaving against medical advice after surgical intervention uninfected hand as per HPI. Police see previous notes for more details. Patient's white blood cell count is elevated compared to previous. Cultures have grown out Gram-positive cocci and we will begin vancomycin. Patient states that he will stay this time Departure Admitted to Inpatient Unit: yes, to hospitalist Impression: Primary Impression: Cellulitis of thumb, right Additional Impression: Abscess of thumb, right Condition: Guarded Referrals: NO PRIMARY CARE PROVIDER (PCP) Signature Scribe Signature: No scribe Attestation: The note accurately reflects work and decisions made by me.Dante Lainez MD 09/28/24 03:27 DANTE LAINEZ MD Sep 28, 2024 01:45
[2024-09-28 01:58] LABS: BASOPHILS # (AUTO) 0.1 X10'3 (0-0.2); BASOPHILS % (AUTO) 0.7 % (0-1); EOSINOPHILS % (AUTO) 0.2 % (0-6); HEMATOCRIT 31.3 % (42.0-52.0); HEMOGLOBIN 9.8 g/dl (14.0-17.9); LYMPHOCYTES # (AUTO) 1.9 X10'3 (1.1-4.8); LYMPHOCYTES % (AUTO) 14.3 % (21-51); MEAN CORPUSCULAR HEMOGLOBIN 21.7 PG (27.0-31.0); MEAN CORPUSCULAR HGB CONC 31.5 g/dL (33.0-36.5); MEAN CORPUSCULAR VOLUME 69.1 FL (78-98); MEAN PLATELET VOLUME 6.7 FL (7.4-10.4); MONOCYTES # (AUTO) 1.2 X10'3 (0-0.9); MONOCYTES % (AUTO) 8.9 % (2-12); NEUTROPHILS # (AUTO) 10.1 X10'3 (1.8-7.7); NEUTROPHILS % (AUTO) 75.9 % (42-75); PLATELET COUNT 678 X10'3 (140-440); RED BLOOD COUNT 4.53 X10'6 (4.70-6.10); RED CELL DISTRIBUTION WIDTH 21.6 % (11.5-14.5); WHITE BLOOD COUNT 13.3 X10'3 (4.5-11.0)
[2024-09-28 02:07] LABS: ANION GAP 9 (8-16); BLOOD UREA NITROGEN 10 MG/DL (7-18); BUN/CREATININE RATIO 15.9 (10.0-20.0); CALCIUM 7.9 MG/DL (8.5-10.1); CHLORIDE 105 MMOL/L (99-107); CREATININE 0.63 MG/DL (0.60-1.10); GLUCOSE 99 MG/DL (70-104); MAGNESIUM 2.1 MG/DL (1.5-2.4); POTASSIUM 3.6 MMOL/L (3.5-5.1); SODIUM 141 MMOL/L (135-145); TOTAL CARBON DIOXIDE 26.7 MMOL/L (24-32); eCRCL 146 ML/MIN; eGFR > 90 ML/MIN
[2024-09-28 02:08] LABS: ALBUMIN 2.2 G/DL (3.4-5.0)
[2024-09-28 02:35] LABS: ANISOCYTOSIS 3+; MICROCYTOSIS 2+; PLATELET ESTIMATE INCREASED
[2024-09-28] MEDS: normal saline 1000ML IV soln IV ONE (02:40)
[2024-09-28] MEDS: vancomycin/NS 1 GM ADD-VANTAGE 250 ML IV ONE (02:40)
[2024-09-28] MEDS ORDERED: BUPR1FIL5 SL (02:42)
--- NOTE | 2024-09-28 03:01 | RADIOLOGY REPORT ---
CHEST RADIOGRAPH Indication: SEPSIS Technique: Single frontal view of the chest was obtained COMPARISON: DI CHEST,SINGLE VIEW on DOS: 09/25/24 FINDINGS: Lines and Tubes: None Lungs: Clear Pleura: No effusion. No pneumothorax. Cardiomediastinal contours: Unremarkable Bones: Unremarkable IMPRESSION: 1. No acute disease.
[2024-09-28] MEDS ORDERED: HYDROcodone/acetaminophen 5mg/325mg tablet PO PRN (03:10)
[2024-09-28] MEDS ORDERED: magnesium Cl slow-release 64mg tablet PO PRN (03:10)
[2024-09-28] MEDS ORDERED: potassium Cl 40MEQ/1/2NS 520ml 520 ML IV PRN (03:10)
[2024-09-28] MEDS ORDERED: magnesium hydroxide 30ml (MOM) UD suspension PO PRN (03:10)
[2024-09-28] MEDS: normal saline 1000ml 1,000 ML IV SCH ×2 (03:10→04:00)
[2024-09-28] MEDS ORDERED: magnesium sulf-water 2g/50mL 50 ML IV PRN (03:10)
[2024-09-28] MEDS ORDERED: ondansetron/PF 4mg/2ml inj IV PRN (03:10)
[2024-09-28] MEDS ORDERED: potassium Cl 20 mEq SR tablet PO PRN ×2 (03:10)
[2024-09-28] MEDS ORDERED: acetaminophen 325mg tablet PO PRN (03:10)
[2024-09-28] MEDS ORDERED: magnesium sulf-water 4G/100mL 100 ML IV PRN (03:10)
--- NOTE | 2024-09-28 03:58 | HISTORY AND PHYSICAL-Residence ---
History & Physical Providers to CC Resident Creating Document: KIMBERLY AVERY, RES CC: RAYRAY ARIAS MD ~ History of Present Illness Primary Medical Doctor: [facility]; [place] Reason for Admit\Complaint: Readmit after leaving AMA History of Present Illness A 34-year-old male with drug abuse left AMA this morning, came back in the night for admission. Patient is very noncompliant, non cooperative and adamant in giving history and patient just states that he is here in the hospital because he has to be here. And when asked for the reason of why he left AMA he would say he did not feel good here. Patient was admitted last time for swelling pain and erythema of the right thumb that was later treated with I and D and fasciotomy. Allergies: Coded Allergies: Penicillins (Verified Allergy, Unknown, 09/28/24) Home Medications Home Medications Active Reported Suboxone 4 Mg-1 Mg Sl Film (Buprenorphine Hcl/Naloxone Hcl) 4 Mg-1 Mg Film 1 Strip SL Q12H 30 Days Past Medical History Past Medical History None Past Surgical History Surgical History Comment Hip, jaw, back surgery Family History Family History: Alive Past Social History Social History Comment Recently incarcerated Was not able to get any further history as the patient is non cooperative Smoking: Cigarettes Alcohol Use: Occasionally Drug Use: Marijuana, Methamphetamine, Heroin Smoking: Cigarettes Alcohol Use: Occasionally Drug Use: Marijuana, Methamphetamine, Heroin ROS ROS All other systems negative except for the pertinent positives mentioned in the HPI Exam Vitals: Vital Signs Date Time Temp Pulse Resp B/P (MAP) Pulse Ox O2 Delivery O2 Flow Rate FiO2 09/28/24 01:53 68 15 142/90 (107) 98 09/28/24 01:22 98.9 General: General: Alert, awake, oriented, not in acute distress HEENT: PERRLA, no icterus, pallor, lymphadenopathy, carotid bruit Respiratory system: Bilateral vesicular breath sounds heard, no adventitious breath sounds CVS: S1-S2 heard, no murmurs/rubs/gallop GI: Soft, nontender, no organomegaly, no guarding/rigidity, bowel sounds present Neuro: No focal neurological deficits present Extremities: No edema cyanosis clubbing/deformities Musculoskeletal: Surgical dressing of the right thumb and forearm Skin: Warm and dry Diagnostic Data Last Recorded Lab Results: 09/28/24 0145 09/28/24 0145 Advance Care Planning Advanced Care plannin - 30 Minutes (I spent 20 minutes discussing various resuscitative measures and the patient decided to be full code) Additional Plan Assessment: A 34-year-old male who was recently admitted for right thumb cellulitis and abscess formation with underlying fasciitis left AMA this morning and came back for readmission. Plan: Right thumb cellulitis, abscess status post I&D on 09/26/2024 Tenosynovitis status post fasciotomy on 09/26/2024 Elevated WBC count compared to last time Pain management IV vancomycin to be continued from last admission IV fluids at 100 cc/hour Substance abuse disorder Previous admission ruled out endocarditis from echo Follow [facility] with [facility] director of consulting services consult Code status: Full code Diet: Regular DVT prophylaxis: Heparin Disposition: Admit to ortho, pending discharge plan antibiotic course Kimberly Avery MD Internal Medicine, PGY 1 Date of Service: Sep 28, 2024 Billing Provider: RAYRAY ARIAS MD, SIVA, RES Sep 28, 2024 03:58
--- NOTE | 2024-09-28 05:44 | ELECTROCARDIOGRAPH REPORT ---
[facility] Test Date: 2024-09-28 Test Time: 01:57:11 Pat Name: AMILCAR SCRUGGS Department: EMERGENCY ROOM Patient ID: [facility]-[id number] Room: ED 1 1 Gender: M Independent Consultant: ERMIAS : 1990 Requested By: BASILIO ALBARRAN Order Number: [id number] Reading MD: Dr. Eddy Chi Measurements Intervals [place] Rate: 64 P: 90 TX: 137 QRS: 77 QRSD: 109 T: 73 QT: 448 QTc: 463 Interpretive Statements Sinus rhythm Biatrial enlargement Baseline wander in lead(s) V3 Electronically Signed On 09-28-2024 6:09:[address] Eddy Chi Please click the below link to view image of tracing.
[2024-09-28] MEDS: K and/or MAG REPLACEMENT MC SCH (07:58)
[2024-09-28] MEDS: docusate sod 100mg capsule PO SCH (07:59)
[2024-09-28] MEDS ORDERED: buprenorphine/naloxone 8MG-2MG SUBlingual film SL ONE (08:00)
[2024-09-28] MEDS: heparin, porcine 5000 units/ml vial SQ SCH (08:11)
[2024-09-28] MEDS: morphine 2 MG/ML inj. syringe IV PRN (08:51)
[2024-09-28] MEDS: VANCOmycin 1250MG/NS 250ml Bag 250 ML IV SCH (10:36)
[2024-09-28] MEDS ORDERED: vancomycin/NS 1 GM ADD-VANTAGE 250 ML IV SCH (11:00)
[2024-09-28] MEDS: buprenorphine/naloxone 8MG-2MG SUBlingual film SL ONE (11:02)
[2024-09-28 11:25] LABS: BILIRUBIN,URINE NEGATIVE (Neg); CLARITY,URINE CLEAR (Clear); COLOR,URINE STRAW (Yellow); GLUCOSE, URINE NEGATIVE (Neg); KETONES,URINE NEGATIVE (Neg); LEUKOCYTE ESTERASE ,URINE NEGATIVE (Neg); NITRITES, URINE NEGATIVE (Neg); OCCULT BLOOD,URINE NEGATIVE (Neg); PH,URINE 7.5 (4.8-8.0); PROTEIN,URINE NEGATIVE (Neg); UROBILINOGEN,URINE 0.2 E.U/dL (0.2-1.0)
[2024-09-28 11:30] LABS: UA COLLECTION TYPE NON-SPECIFIED
[2024-09-28] MEDS: HYDROmorphone inj. 0.5 MG/0.5 ML DISP.SYRIN IV PRN (12:48)
[2024-09-28] MEDS: mag hydrox/Alum hydrox/simeth 30ml oral suspension PO PRN (14:02)
[2024-09-28 14:08] VITALS: RESP 18; O2SAT 98
[2024-09-28 14:12] VITALS: BP 132/74; PULSE 72; RESP 18; TEMP 98.1; O2SAT 98
[2024-09-28] MEDS: HYDROcodone/acetaminophen 10/325mg tab PO PRN (16:04)
[2024-09-28] MEDS: nicotine 14mg patch - 24hr TD SCH (16:05)
[2024-09-28] MEDS: pantoprazole 40mg Tablet.DR PO SCH (16:05)
[2024-09-28 20:00] VITALS: RESP 15; O2SAT 100
[2024-09-28 22:00] VITALS: BP 124/80; PULSE 72; RESP 17; TEMP 97.5; O2SAT 100
[2024-09-28] MEDS: pantoprazole 40mg Tablet.DR PO ONE (23:01)
[2024-09-29 06:00] VITALS: BP 126/78; PULSE 75; RESP 16; TEMP 98; O2SAT 100
[2024-09-29 06:23] LABS: BASOPHILS % (AUTO) 0.5 % (0-1); EOSINOPHILS # (AUTO) 0.1 X10'3 (0-0.9); EOSINOPHILS % (AUTO) 1.3 % (0-6); HEMOGLOBIN 9.1 g/dl (14.0-17.9); LYMPHOCYTES % (AUTO) 29.6 % (21-51); MEAN CORPUSCULAR HGB CONC 32.4 g/dL (33.0-36.5); MEAN PLATELET VOLUME 6.9 FL (7.4-10.4); MONOCYTES # (AUTO) 0.8 X10'3 (0-0.9); MONOCYTES % (AUTO) 11.5 % (2-12); NEUTROPHILS # (AUTO) 3.9 X10'3 (1.8-7.7); NEUTROPHILS % (AUTO) 57.1 % (42-75); PLATELET COUNT 464 X10'3 (140-440); RED BLOOD COUNT 4.12 X10'6 (4.70-6.10); RED CELL DISTRIBUTION WIDTH 21.9 % (11.5-14.5); WHITE BLOOD COUNT 6.8 X10'3 (4.5-11.0)
[2024-09-29 06:40] LABS: ALBUMIN 1.8 G/DL (3.4-5.0); ANION GAP 5 (8-16); BLOOD UREA NITROGEN 11 MG/DL (7-18); BUN/CREATININE RATIO 16.9 (10.0-20.0); CHLORIDE 108 MMOL/L (99-107); CREATININE 0.65 MG/DL (0.60-1.10); GLUCOSE 110 MG/DL (70-104); POTASSIUM 3.7 MMOL/L (3.5-5.1); SODIUM 140 MMOL/L (135-145); eCRCL 141 ML/MIN; eGFR > 90 ML/MIN
[2024-09-29] MEDS: buprenorphine/naloxone 8MG-2MG SUBlingual film SL SCH (07:33)
[2024-09-29 08:00] VITALS: RESP 16
[2024-09-29] MEDS ORDERED: AMOX-580 PO (09:09)
[2024-09-29] MEDS ORDERED: HYDR-3965 PO (09:09)
[2024-09-29] MEDS: VANCOMYCIN LEVEL IV ONE (10:43)
[2024-09-29 12:09] VITALS: RESP 16
[2024-09-30] MEDS ORDERED: HYDR-3965 PO (06:48)
--- NOTE | 2024-09-30 09:03 | DISCHARGE SUMMARY ---
Discharge Summary Providers to CC ~ Discharge Summary Admission Diagnosis: Rt thumb cellulitis s/p fasciotomy, I&D, Readmit after leaving AMA Hospital Course DATE OF ADMISSION: 09/28/2024 DATE OF DISCHARGE: September 29, 2024 Discharge Diagnosis\Comment: Right thumb cellulitis Possible septic tenosynovitis involving the thumb with possible compartment syndrome of the hand culture showing MSSA Microcytic anemia Polysubstance abuse with methamphetamine and fentanyl History of opioid addiction Operations\Procedures: None Consultants: None Complications: None Condition on DC: Stable Discharge Summary: 34 years old male who presented to the hospital with right hand pain and swe lling; he was admitted to the hospital and had an I&D done by Dr. Mcdonald on September 26 and then he left against medical advice; patient returned to the hospital and got readmitted and restarted on IV antibiotics; cultures from initial admission showed presence of MSSA; his hand looked better and patient was referred to wound clinic; patient was discharged home with prescription for Au gmentin 875 mg one tablet p.o. b.i.d. for 10 days and [place] 08/25/2024; patient to continue his Suboxone Blood work upon discharge white count 6.8 H&H 9.1/28 with 464 platelets; sodium 140 potassium 3.7 CO2 27 BUN 11 and creatinine 0.6 In the physical examination temperature 98 heart rate 75 breathing 16 blood pressure 126/78 100% on room air HEENT normal oral mucosa no JVD lungs with normal bilateral entry no crackles no wheezing heart normal rate and rhythm S1- S2 no murmurs abdomen is soft nontender bowel sounds are present extremities no edema plus two pulses right hand with decreased edema clean incisions *Problems/Diagnosis: (1) Abscess of thumb, right Status: Acute Total Time Spent on D/C: > 30 Minutes Date of Service: Sep 29, 2024 Billing Provider: TAHIRA LEE MD Common Visit Codes: 76658-BYT/OBS DISCH DAY >30min TAHIRA LEE MD Sep 30, 2024 08:58
== END 2024-09-29 13:45 | disposition home or self-care (01) | DRG 383 ==
LOC: ER 01:18 → ED HOLD 03:14 → SUR 3N 12:35
PROVIDERS: ADMIT Internal Medicine Sleep Medicine; ATTEND Internal Medicine
DX: L03.011 Cellulitis of right finger (principal); T79.A11A Traumatic compartment syndrome of right upper extremity, initial encounter; D50.9 Iron deficiency anemia, unspecified; F11.10 Opioid abuse, uncomplicated; F15.10 Other stimulant abuse, uncomplicated; A49.01 Methicillin susceptible Staphylococcus aureus infection, unspecified site; F17.210 Nicotine dependence, cigarettes, uncomplicated; F20.9 Schizophrenia, unspecified; F32.A Depression, unspecified; M65.141 Other infective (teno)synovitis, right hand; F41.9 Anxiety disorder, unspecified; X58.XXXA Exposure to other specified factors, initial encounter; Y93.89 Activity, other specified; Y92.89 Other specified places as the place of occurrence of the external cause; Y99.8 Other external cause status; Z91.199 Patient's noncompliance with other medical treatment and regimen due to unspecified reason; F19.10 Other psychoactive substance abuse, uncomplicated
CPT/HCPCS: 36415; 71045; 80048; 80202; 81003; 83605; 83735; 84132; 84145; 85008; 85025; 87040; 87081; 93005; 96365; 96375; 99285; A6446; A6449; G0378; J1171; J1644; J2270; J3370; J7030

== ENCOUNTER 2025-03-24 01:28 | Emergency (ER) | payer MEDICAID ==
[~2025-03-24] VITALS: Ht 177.8 cm; Wt 63.6 kg
[~2025-03-24 01:28] MED LIST changes: +BUPR1FIL5 SL; -NO HOME MEDS; -OLAN2.5T3 PO
--- NOTE | 2025-03-24 05:06 | Physician Documentation ---
History of Present Illness ~ Chief Complaint: Back Pain Stated Complaint: BACK PAIN Time Seen by MD: 04:59 OK to notify your PCP?: Yes [facility] Source: patient, RN/MD, EMS, RN notes reviewed, EMS notes reviewed, old records Mode of Arrival: EMS Exam Limitations: no limitations HPI Per triage patient was complaining of back pain 9/10 pain after he was asked to leave a business and then stated he could not walk. EMS was called and brought him to the emergency room. No report of any trauma. Patient has been seen at our facility multiple times for psychosis general medical screening exam Patient is homeless Patient is asking if he can have food Medication Reconciliation Allergies: Coded Allergies: Penicillins (Verified Allergy, Unknown, 09/28/24) Scheduled Buprenorphine Hcl/Naloxone Hcl (Suboxone 4 Mg-1 Mg Sl Film), 1 STRIP SL Q12H, (Reported) Naproxen (Naproxen), 1 TAB PO Q12H Past Medical History Past Medical History: Chronic Pain, Anxiety, Depression, Schizophrenia Past Surgical History: orthopedic surgeries Patient History: Alive Smoking Status: Current every day smoker Alcohol Use: Occasionally Drug Use: marijuana, methamphetamine, heroin Review of Systems All Other Systems at this time: Reviewed and Negative Physical Exam Physical Exam Vital Signs: RN Vital Signs have been reviewed: Yes, Temperature: 98.4, Source: Oral, Heart Rate: 80, Respiratory Rate: 18, BP: 132/74, Pulse Oximetry: 99, Weight: 63.640 Physical Exam General: The patient is well developed, well nourished, nontoxic appearing and is in mild acute distress. Skin: [place], warm and dry with no rashes. HEENT: Head was normocephalic and atraumatic. Eyes - pupils equal, round, reactive to light and accommodation. Extraocular movements were intact. Conjunctivae were nonicteric. The mouth and oropharynx were clear with cori st mucous membranes. There were no pharyngeal exudates or erythema. Neck: Supple and nontender. There was no jugular venous distention, lymphadenopathy, thyromegaly or masses. Chest: Clear to auscultation bilaterally without wheezes, rales or rhonchi. No accessory muscle use. No dullness to percussion. Heart: Rate regular and rhythmic. S1, S2. No murmurs. Palpation of the chest wall was normal. No rubs or thrills. Abdomen: Soft, nontender and nondistended. Positive bowel sounds. No guarding or rebound. No hepatosplenomegaly or palpable masses. Extremities: No cyanosis, clubbing or edema. The patient moves all ex tremities. Pulses were equal and symmetric. Back: Straight leg test is negative bilaterally. Large thoracic lumbar scar is noted and deformity scoliosis of spine. No point tenderness along any vertebrae each vertebrae was palpated Neurologic: Sensation was intact to light touch throughout. Motor strength was 5/5 in all four extremities. Deep tendon reflexes were intact in both upper and lower extremities. Psychologic: The patient was oriented to person, place and time. The patient demonstrated appropriate judgement and insight. Progress Progress Note 7:[address] scan will signed out the chart to the morning physician for final disposition and workup Results/Orders Reviewed/noted all lab results: Yes Results/Orders Orders - JONAS CHI MD Ct T&L Spine (03/24/25 05:50) Culture Blood (03/24/25 07:44) Completed Orders - JONAS CHI MD Naproxen Tablet (Naprosyn Tablet) (03/24/25 05:10) Hydrocodone/Apap 10/325 ([place] 10/325mg (03/24/25 05:15) Dexamethasone Tablet (Decadron Tablet) (03/24/25 05:15) Ct T&L Spine (03/24/25 05:50) Cbc/Diff (03/24/25 07:44) MG (03/24/25 07:44) Urinalysis, Cult If Indicated (03/24/25 07:44) Procalcitonin (03/24/25 07:44) BMP (03/24/25 07:44) Lacticsepsis (03/24/25 07:44) C-Reactive Protein (03/24/25 07:44) ESR (03/24/25 07:44) Vital Signs 03/24/25 03/24/25 03/24/25 03/24/25 01:36 03:00 04:32 05:20 Temp 98.4 Pulse 89 80 Resp 16 16 18 16 B/P (MAP) 140/109 132/74 (93) Pulse Ox 100 99 03/24/25 03/24/25 03/24/2530/25 06:08 08:00 09:13 11:13 Temp 97.4 Pulse 78 98 62 89 Resp 18 14 17 20 B/P (MAP) 113/71 (85) 113/74 (87) 126/72 (90) 120/78 Pulse Ox 98 98 97 99 O2 Flow Rate 0 0 Laboratory Tests Test 03/24/25 08:21 03/24/25 08:23 White Blood Count 9.1 Red Blood Count 4.44 L Hemoglobin 10.0 L Hematocrit 30.6 L Mean Corpuscular Volume 69.0 L Mean Corpuscular Hemoglobin 22.5 L Mean Corpuscular Hemoglobin Concent 32.6 L Red Cell Distribution Width 19.4 H Platelet Count 575 H Mean Platelet Volume 6.3 L Neutrophils (%) (Auto) 91.9 H Lymphocytes (%) (Auto) 5.3 L Monocytes (%) (Auto) 1.8 L Eosinophils (%) (Auto) 0.7 Basophils (%) (Auto) 0.3 Neutrophils # (Auto) 8.3 H Lymphocytes # (Auto) 0.5 L Monocytes # (Auto) 0.2 Eosinophils # (Auto) 0.1 Basophils # (Auto) 0.0 CBC Comment Erythrocyte Sedimentation Rate 78 H Sodium Level 139 Potassium Level 3.6 Chloride Level 103 Carbon Dioxide Level 29.9 Anion Gap 6 L Blood Urea Nitrogen 12 Creatinine 0.70 Estimated GFR/1.73 m2 > 90 BUN/Creatinine Ratio 17.1 Glucose Level 148 H Lactic Acid Level 1.3 Calcium Level 8.3 L Magnesium Level 1.9 C-Reactive Protein 9.87 H Albumin 2.3 L Procalcitonin 0.27 Chemistry Comments Urine Specimen Description Urinal Urine Color Yellow Urine Clarity Clear Urine pH 6.5 Urine Specific [place] 1.015 Urine Protein Negative Urine Glucose (UA) Negative Urine Ketones Negative Urine Occult Blood Negative Urine Nitrite Negative Urine Bilirubin Negative Urine Urobilinogen 0.2 Urine Leukocyte Esterase Negative Urine Culture Indicated Not ind Volume Urine Centrifuged 10 ml Urine Comment Microbiology Date/Time Source Procedure Growth Status 03/24/25 08:37 Blood Arm Left Blood Culture - Preliminary NEGATIVE (LESS THAN 24 HOURS) Resulted Re-Evaluation Re-Evaluation : Re-Evaluation: Improved, Unchanged Progress Patient is having difficulty moving. He has no trauma but has had prior surgery and severe scoliosis. CT scan was obtained after the patient received [place], naproxen and Decadron. EKG/XRAY/CT/US/VASC/MRI CT : CT: T-spine Impression COMPARISON: None CTDIvol 21.4 mGy, DLP 1168.61 mGy*cm. TECHNIQUE: Multiple axial CT images of the spine were obtained using bone algorithm. Axial and coronal reformatting was done. Bone and soft tissue windows were reviewed. FINDINGS: There is posterior stabilization hardware from T10 - L3 . There is a chronic moderate compression fracture of L1 vertebral body with 50% height loss. Extensive radiolucency surrounding the left transpedicular screws at L2 and L3 and right transpedicular screw at L3. Sclerotic changes in L2 and L3 vertebral bodies. There is paravertebral soft tissue swelling at T9 and T10. Trace bilateral pleural effusions. Mild passive bibasilar atelectasis. Large amount of stool throughout the visualized colon. Punctate nonobstructing right nephrolithiasis. IMPRESSION: Limited assessment due to lack of IV contrast. Extensive radiolucency surrounding the left transpedicular screws at L2 and L3 and right transpedicular screw at L3. Findings may suggest hardware loosening versus infection. A nuclear medicine gallium scan may be helpful for further assessment. Chronic moderate compression fracture of L1 vertebral body with 50% height loss. Trace bilateral pleural effusions. Large amount of stool throughout the visualized colon. Punctate nonobstructing right nephrolithiasis. Electronically Signed by:IWONA JOY MD Date & Time: 03/24/25 07 Medical Decision Making Additional information obtaine: old records Findings Patient was signed out to the physician to rule out an acute back issue and laboratory work was said to be normal and was discharged home by the morning physician has musculoskeletal back pain Differential Dx:Considerations: DJD, Fracture, Musculoskeletal pain, Strain, Other Departure Disposition: 01 HOME / SELF CARE / HOMELESS Impression: Primary Impression: Musculoskeletal back pain Condition: Stable Discharge Instructions: Chronic Back Pain Referrals: NO PRIMARY CARE PROVIDER (PCP) Prescriptions Naproxen (Naproxen) 500 Mg Tablet 1 TAB PO Q12H, #20 TAB Prov: JONAS CHI MD 03/24/25 Education Educated: Patient Educated regarding: diagnosis Signature Scribe Signature: The note accurately reflects work and decisions made by me.Jonas Chi MD 1 05/24/24 05:14 Attestation: The note accurately reflects work and decisions made by me.Jonas Chi MD 05:14 JONAS CHI MD Mar 24, 2025 05:06
[2025-03-24] MEDS ORDERED: NAPR-56 PO (05:09)
[2025-03-24] MEDS: HYDROcodone/acetaminophen 10/325mg tab PO ONE (05:20)
--- NOTE | 2025-03-24 07:25 | RADIOLOGY REPORT ---
EXAM: CT CT T L SPINE HISTORY: pain COMPARISON: None CTDIvol 21.4 mGy, DLP 1168.61 mGy*cm. TECHNIQUE: Multiple axial CT images of the spine were obtained using bone algorithm. Axial and coronal reformatting was done. Bone and soft tissue windows were reviewed. FINDINGS: There is posterior stabilization hardware from T10 - L3 . There is a chronic moderate compression fracture of L1 vertebral body with 50% height loss. Extensive radiolucency surrounding the left transpedicular screws at L2 and L3 and right transpedicular screw at L3. Sclerotic changes in L2 and L3 vertebral bodies. There is paravertebral soft tissue swelling at T9 and T10. Trace bilateral pleural effusions. Mild passive bibasilar atelectasis. Large amount of stool throughout the visualized colon. Punctate nonobstructing right nephrolithiasis. IMPRESSION: Limited assessment due to lack of IV contrast. Extensive radiolucency surrounding the left transpedicular screws at L2 and L3 and right transpedicular screw at L3. Findings may suggest hardware loosening versus infection. A nuclear medicine gallium scan may be helpful for further assessment. Chronic moderate compression fracture of L1 vertebral body with 50% height loss. Trace bilateral pleural effusions. Large amount of stool throughout the visualized colon. Punctate nonobstructing right nephrolithiasis.
[2025-03-24 08:46] LABS: LEUKOCYTE ESTERASE ,URINE NEGATIVE (Neg); NITRITES, URINE NEGATIVE (Neg); OCCULT BLOOD,URINE NEGATIVE (Neg)
[2025-03-24 08:49] LABS: UA COLLECTION TYPE URINAL
[2025-03-24 08:53] LABS: MEAN PLATELET VOLUME 6.3 FL (7.4-10.4); RED CELL DISTRIBUTION WIDTH 19.4 % (11.5-14.5)
[2025-03-24 08:59] LABS: CREATININE 0.70 MG/DL (0.60-1.10); TOTAL CARBON DIOXIDE 29.9 MMOL/L (24-32); eCRCL 130 ML/MIN; eGFR > 90 ML/MIN
[2025-03-24 11:13] VITALS: BP 120/78; PULSE 89; RESP 20; TEMP 97.4; O2SAT 99
== END 2025-03-24 11:15 | disposition home or self-care (01) ==
LOC: ER 01:28
DX: M54.9 Dorsalgia, unspecified (principal); F12.90 Cannabis use, unspecified, uncomplicated; F17.200 Nicotine dependence, unspecified, uncomplicated; F20.9 Schizophrenia, unspecified; G89.29 Other chronic pain; F41.9 Anxiety disorder, unspecified; F32.A Depression, unspecified; F15.90 Other stimulant use, unspecified, uncomplicated; F11.90 Opioid use, unspecified, uncomplicated; Z59.00 Homelessness unspecified; Z88.0 Allergy status to penicillin; Z79.899 Other long term (current) drug therapy; Z72.89 Other problems related to lifestyle; Z98.890 Other specified postprocedural states
CPT/HCPCS: 36415; 72128; 72131; 80048; 81003; 83605; 83735; 84145; 85025; 85651; 86140; 87040; 99285

== ENCOUNTER 2025-04-07 01:15 | Emergency (ER) | payer MEDICAID ==
[~2025-04-07] VITALS: Ht 172.7 cm; Wt 50.0 kg
[~2025-04-07 01:15] MED LIST changes: +NAPR-56 PO
[2025-04-07 01:19] VITALS: BP 162/87; PULSE 112; RESP 18; TEMP 98; O2SAT 96
== END 2025-04-07 02:16 | disposition left against medical advice (07) ==
LOC: ER 01:16
DX: M79.89 Other specified soft tissue disorders (principal); Z53.21 Procedure and treatment not carried out due to patient leaving prior to being seen by health care provider; Z88.0 Allergy status to penicillin
CPT/HCPCS: 99281